=== PATIENT | male | born 1935 | race Caucasian/White ===

== ENCOUNTER → 2016-07-06 | Outpatient (CLI) | payer MEDICARE ==
[~2016-07-06] MED LIST: AMLO10TA82 PO; ATOR10TA66 PO; CPR500T PO; CRAN1CAP3 PO; DCS100C PO; DPAS20025 PO; FINA5TAB6 PO; FURO80TA83 PO; HYDR-3604 PO; HYDRALAZINE; LOSA100T16 PO; MULT-301 PO; NEBI5TAB8 PO; SENN1TAB76 PO; TMSL.4C PO
[2016-07-06 10:40] LABS: MEAN PLATELET VOLUME 10.6 FL (7.4-10.4); RED BLOOD COUNT 4.71 10^6/uL (4.35-5.85); RED CELL DISTRIBUTION WIDTH 14.2 % (10.0-14.5); WHITE BLOOD COUNT 8.6 10^3/uL (4.3-11.0)
[2016-07-06 11:00] LABS: ALBUMIN 3.6 G/DL (3.2-4.5); ANION GAP 5 MMOL/L (5-14); BLOOD UREA NITROGEN 23 MG/DL (7-18); BUN/CREATININE RATIO 22; CALCIUM 9.5 MG/DL (8.5-10.1); CARBON DIOXIDE 29 MMOL/L (21-32); CHLORIDE 108 MMOL/L (98-107); CHOLESTEROL 122 MG/DL (< 200); CREATININE SERUM 1.06 MG/DL (0.60-1.30); DIRECT LDL 61 MG/DL (1-129); GFR ESTIMATED > 60; GLUCOSE 94 MG/DL (70-105); POTASSIUM 3.5 MMOL/L (3.6-5.0); SODIUM 142 MMOL/L (135-145); TRIGLYCERIDES 61 MG/DL (<150); VLDL CHOLESTEROL 12 MG/DL (5-40)
[2016-07-06 13:36] LABS: PROTEIN/CREATININE RATIO 0.59
[2016-07-07 08:25] LABS: CALCIUM PARA THYROID HORMONE 9.3 mg/dL (8.5-10.5)
== END ==
LOC: LAB 10:14
PROVIDERS: ATTEND Internal Medicine Nephrology
DX: N18.4 Chronic kidney disease, stage 4 (severe) (principal); E78.5 Hyperlipidemia, unspecified; N13.9 Obstructive and reflux uropathy, unspecified; I25.10 Atherosclerotic heart disease of native coronary artery without angina pectoris; I50.9 Heart failure, unspecified
CPT/HCPCS: 36415; 80061; 80069; 82306; 82570; 83970; 84156; 85027

== ENCOUNTER → 2017-02-08 | Outpatient (CLI) | payer MEDICARE ==
[2017-02-08 12:20] LABS: MEAN PLATELET VOLUME 11.3 FL (7.4-10.4); RED BLOOD COUNT 4.87 10^6/uL (4.35-5.85); RED CELL DISTRIBUTION WIDTH 13.9 % (10.0-14.5); WHITE BLOOD COUNT 8.8 10^3/uL (4.3-11.0)
[2017-02-08 12:34] LABS: ALBUMIN 3.8 GM/DL (3.2-4.5); ANION GAP 7 MMOL/L (5-14); BLOOD UREA NITROGEN 23 MG/DL (7-18); BUN/CREATININE RATIO 25; CALCIUM 9.6 MG/DL (8.5-10.1); CARBON DIOXIDE 28 MMOL/L (21-32); CHLORIDE 106 MMOL/L (98-107); CHOLESTEROL 129 MG/DL (< 200); CREATININE SERUM 0.92 MG/DL (0.60-1.30); DIRECT LDL 66 MG/DL (1-129); GFR ESTIMATED > 60; GLUCOSE 94 MG/DL (70-105); PHOSPHORUS 2.7 MG/DL (2.3-4.7); POTASSIUM 3.3 MMOL/L (3.6-5.0); SODIUM 141 MMOL/L (135-145); TRIGLYCERIDES 68 MG/DL (<150); VLDL CHOLESTEROL 14 MG/DL (5-40)
[2017-02-08 12:36] LABS: PROTEIN/CREATININE RATIO 0.59
[2017-02-09 07:00] LABS: CALCIUM PARA THYROID HORMONE 9.6 mg/dL (8.5-10.5)
== END ==
LOC: LAB 11:41
PROVIDERS: ATTEND Nurse Practitioner
DX: E78.5 Hyperlipidemia, unspecified (principal); N18.4 Chronic kidney disease, stage 4 (severe); N13.9 Obstructive and reflux uropathy, unspecified; I25.10 Atherosclerotic heart disease of native coronary artery without angina pectoris; I50.9 Heart failure, unspecified; N25.0 Renal osteodystrophy
CPT/HCPCS: 36415; 80061; 80069; 82306; 82570; 83970; 84156; 85027

== ENCOUNTER 2017-05-14 16:53 | Emergency (ER) | payer MEDICARE ==
[~2017-05-14] VITALS: Ht 185.4 cm; Wt 96.2 kg
--- OUTSIDE RECORDS SUMMARY | 2017-05-14 16:59 | XMS REPORT | Clinical Summary ---
Author Author [facility] Organization [facility] Address Unknown Phone Unavailable Care Team Providers Care Vocational Nurse Lvn Name Role Phone Domo Sims MD Unavailable Doctor, Miscellaneous Unavailable Unavailable Isabel Barnard MD Unavailable Yoselin Allan MD PCP Omar Sow MD Unavailable Elvira Rodriguez MD Unavailable Unavailable Sarah Marinelli MD Unavailable Key Yao MD Unavailable Stephanie Condon RN Unavailable Unavailable Source Comments Some departments are not documenting in the electronic medical record. If you do not see the information that you expected, contact Release of Information in the Health Information Management department at [phone] for further assistance in locating additional records.[facility] Allergies No Known Allergies Current Medications Prescription Sig. Disp. Refills Start End Date Status Date hydrALAzine (APRESOLINE) Take 2 Tabs by mouth 90 Tab 3 09/30/19 Active 10 mg tablet three times daily. 12 clopiDOGrel (PLAVIX) 75 Take 75 mg by mouth Active mg tablet daily. senna (SENOKOT) 8.6 mg Take 1 Tab by mouth Active tablet daily. amLODIPine (NORVASC) 10 Take 10 mg by mouth Active mg tablet daily. cyanocobalamin (vitamin Place 5,000 mcg under Active B-12) 5,000 mcg Subl tongue daily. losartan(+) (COZAAR) 100 Take 100 mg by mouth Active mg tablet daily. simvastatin (ZOCOR) 20 mg Take 1 Tab by mouth at 90 Tab 3 10/02/20 Active tablet bedtime daily. 13 finasteride (PROSCAR) 5 TAKE ONE TABLET BY MOUTH 90 Tab 0 03/19/19 Active mg tablet DAILY 17 tamsulosin (FLOMAX) 0.4 Take 1 capsule by mouth 90 capsule 3 05/13/19 Active mg capsule daily. Do not crush, chew 18 or open capsules. Take 30 minutes following the same meal each day. tamsulosin (FLOMAX) 0.4 TAKE ONE CAPSULE BY MOUTH 90 Cap 3 07/01/19 05/12/19 Discontin mg capsule DAILY 17 18 ued tamsulosin (FLOMAX) 0.4 TAKE ONE CAPSULE BY MOUTH 90 capsule 2 05/13/19 Discontin mg capsule DAILY 18 18 ued Active Problems Problem Noted Date Hematuria 03/31/2014 Last Assessment & Plan: Cystoscopy March 2014 negative, review of CT urogram pending, but appears negative per our review. No further workup at this time. Stroke (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) 10/03/2012 HTN (hypertension) 10/03/2012 S/P administration of tPA (rtPA) in a different facility within the last 24 10/03/2012 hours prior to admission to current facility Mechanically assisted ventilation 10/03/2012 Benign prostatic hypertrophy with urinary retention 12/29/2011 Overview: Pt with history of acute renal failure related to urinary retention He also has elevated PSA and prostate biopsy is negative. 80g prostate on TRUS Pt had indwelling ray catheter and underwent discussion of treatment options. His renal failure is resolving. He went to [facility] and underwent photovaporization of prostate gland. Postoperatively, the patient had a suprapubic tube and urethral catheter placed. Urethral catheter was removed. Pt not able to void after bladder filled via SPT and SPT clamped. Pt is not able to void much based on his record keeping and continues to have high PVR as tested per his SPT. SPT attempted to be changed and I was unable to replace it despite use of cystoscope. Patient had UDS done and this shows that he has good bladder function Urethral catheter difficult to place and had to be placed under cystoscopic guidance (see cystoscopy note). Started on Flomax and Finasteride 03/2012. 05/21/12 failed voiding trial with replacement of ray catheter 06/21/12 urethral catheter removed and passed voiding trial. 09/25/14: continues on flomax/finasteride, PVR - 289, Cr stable at 1.1 L ast Assessment & Plan: Patient continues double voiding, creatinine is stable and no further issues with UTI. Will refill flomax/finasteride. Continue to follow with nephrology/PCP, no more PSA screening indicated. RTC PRN Elevated PSA 11/24/2011 Overview: Formatting of this note may be different from the original. PSA Screen Date Value Range Status 09/24/2011 40.93* <4.0 NG/ML Final TRUS-guided biopsy (12 cores) on 12/14/11 Final Pathology Diagnosis: A. Prostate, "needle biopsy of prostate right", biopsy:Benign prostate tissue. There is no evidence of malignancy. B. Prostate, "needle biopsy of prostate left", biopsy:Benign prostate tissue.There is no evidence of malignancy. L ast Assessment & Plan: -RTC in 6 months with PSA. On finasteride Bladder wall thickening 11/24/2011 Last Assessment & Plan: -Thickened Bladder wall - Concern for malignancy - Will evaluate with , Urine cytology, will bring to OR for cystoscopy, possible bladder Bx with B Reterograde ureterograms and possible TURP and prostate biopsy on Dec 13. Will try an obtain CT done -PAT testing. - No pending consults -Consent obtained today Hypokalemia 09/28/2011 High anion gap metabolic acidosis 09/28/2011 Hypertensive urgency 09/24/2011 Hydronephrosis, bilateral 09/24/2011 Overview: - History of acute urinary retention -Reports a history of elevated PSA with negative Bx in - Has Ray catheter in 1990 L ast Assessment & Plan: - Will obtain imaging to evaluate ? Abdominal mass - Will change ray today Acute renal failure (HCC) 09/24/2011 Suprapubic mass 09/24/2011 Encounters Date Type Specialty Care Team Description 05/12/2017 Refill Urology Omar Sow MD 05/11/2017 Refill Urology Omar Sow MD from Last 3 Months Immunizations Name Dates Previously Given Next Due Pneumococcal Vaccine 09/28/2011 (23-[facility] Adult) Family History Medical History Relation Name Comments Hypertension Father Stroke Father Alzheimer's Mother Relation Name Status Comments Father Mother Social History Tobacco Use Types Packs/Day Years Used Date Never Smoker Quit: 09/23/1950 Smokeless Tobacco: Former Chew Quit: User 09/24/1963 Alcohol Use Drinks/Week oz/Week Comments Yes 1 Glasses of 4.2 Socially wine 6 Cans of beer Sex Assigned at Date Recorded Not on file Last Filed Vital Signs Vital Sign Reading Time Taken Blood Pressure 144/74 09/25/2014 11:28 AM CDT Pulse 60 09/25/2014 11:28 AM CDT Temperature 36.7 C (98 F) 10/07/2012 7:41 AM CDT Respiratory Rate 16 09/25/2014 11:28 AM CDT Oxygen Saturation 96% 10/07/2012 7:41 AM CDT Inhaled Oxygen - - Concentration Weight 103.3 kg (227 lb 12.8 oz) 09/25/2014 11:28 AM CDT Height 185.4 cm (6' 1") 09/25/2014 11:28 AM CDT Body Mass Index 30.05 09/25/2014 11:28 AM CDT Plan of Treatment Health Maintenance Due Date Last Done Comments PHYSICAL (COMPREHENSIVE) 1942 EXAM PERTUSSIS VACCINE 1944 TETANUS VACCINE 1950 SHINGLES VACCINE 1993 PREVNAR/PNEUMOVAX (#2) 09/27/2012 09/28/2011 INFLUENZA VACCINE 11/22/2017 Results Not on filefrom Last 3 Months
--- OUTSIDE RECORDS SUMMARY | 2017-05-14 16:59 | XMS REPORT | Encounter Summary ---
Author Author [facility] Organization [facility] Address Unknown Phone Unavailable Care Team Providers Care Clock And Watch Hands Mounter Name Role Phone Domo Sims MD Unavailable Doctor, Miscellaneous Unavailable Unavailable Isabel Barnard MD Unavailable Yoselin Allan MD PCP Omar Sow MD Unavailable Elvira Rodriguez MD Unavailable Unavailable Sarah Marinelli MD Unavailable Key Yao MD Unavailable Stephanie Condon RN Unavailable Unavailable Reason for Visit * Reason Comments Medication Refill Encounter Details Date Type Department Care Team Description 05/12/2017 Refill [facility] Omar Sow MD Physicians - Urology [address] [facility] [address] FLO[address] [place] [address] [facility] [place] [address] OFFICE BLDG [phone] [place] [address] Social History Tobacco Use Types Packs/Day Years Used Date Never Smoker Quit: 09/23/1950 Smokeless Tobacco: Former Chew Quit: User 09/24/1963 Alcohol Use Drinks/Week oz/Week Comments Yes 1 Glasses of 4.2 Socially wine 6 Cans of beer Sex Assigned at Date Recorded Not on file as of this encounter Plan of Treatment Not on fileas of this encounter Visit Diagnoses Not on filein this encounter
--- OUTSIDE RECORDS SUMMARY | 2017-05-14 17:00 | XMS REPORT | Encounter Summary ---
Author Author [facility] Organization [facility] Address Unknown Phone Unavailable Care Team Providers Care Junior Accounting Clerk Name Role Phone Domo Sims MD Unavailable Doctor, Miscellaneous Unavailable Unavailable Isabel Barnard MD Unavailable Yoselin Allan MD PCP Omar Sow MD Unavailable Elvira Rodriguez MD Unavailable Unavailable Sarah Marinelli MD Unavailable Key Yao MD Unavailable Stephanie Condon RN Unavailable Unavailable Reason for Visit * Reason Comments Medication Refill Encounter Details Date Type Department Care Team Description 05/11/2017 Refill [facility] Omar Sow MD Physicians - Urology [address] [facility] [address] FLOOR POD [address] [place] [address] [facility] [place] [address] OFFICE BLDG [phone] [place] [address] Social History Tobacco Use Types [...]
[2017-05-14] MEDS ORDERED: NS IV 1000 ML 1,000 ML IV SCH (19:11)
[2017-05-14 19:15] VITALS: BP 163/78
[2017-05-14 19:43] LABS: BILIRUBIN,URINE NEGATIVE (NEGATIVE); CLARITY,URINE SLIGHTLY CLOUDY; COLOR,URINE YELLOW; GLUCOSE, URINE (UA) NEGATIVE (NEGATIVE); KETONES,URINE NEGATIVE (NEGATIVE); LEUKOCYTE ESTERASE ,URINE 3+ (NEGATIVE); NITRITE,URINE NEGATIVE (NEGATIVE); PH,URINE 6 (5-9); PROTEIN,URINE 2+ (NEGATIVE); UROBILINOGEN,URINE NORMAL (NORMAL)
[2017-05-14 19:44] LABS: BASOPHILS % (AUTO) 0 % (0-10); EOSINOPHILS % (AUTO) 0 % (0-10); HEMATOCRIT 43 % (40-54); HEMOGLOBIN 14.7 G/DL (13.3-17.7); LYMPHOCYTES # (AUTO) 1.3 X 10^3 (1.0-4.0); LYMPHOCYTES % (AUTO) 18 % (12-44); MEAN CORPUSCULAR HEMOGLOBIN 32 PG (25-34); MEAN CORPUSCULAR HGB CONC 34 G/DL (32-36); MEAN CORPUSCULAR VOLUME 94 FL (80-99); MEAN PLATELET VOLUME 10.5 FL (7.4-10.4); MONOCYTES # (AUTO) 1.7 X 10^3 (0.0-1.0); MONOCYTES % (AUTO) 23 % (0-12); NEUTROPHILS # (AUTO) 4.2 X 10^3 (1.8-7.8); NEUTROPHILS % (AUTO) 58 % (42-75); PLATELET COUNT 145 10^3/uL (130-400); RED BLOOD COUNT 4.56 10^6/uL (4.35-5.85); RED CELL DISTRIBUTION WIDTH 14.1 % (10.0-14.5); WHITE BLOOD COUNT 7.2 10^3/uL (4.3-11.0)
[2017-05-14 19:54] LABS: BACTERIA,URINE FEW /HPF; WBC,URINE 25-50 /HPF
[2017-05-14 20:02] LABS: ALANINE AMINOTRANSFERASE 25 U/L (0-55); ALBUMIN 4.1 GM/DL (3.2-4.5); ALKALINE PHOSPHATASE 93 U/L (40-136); BILIRUBIN,TOTAL 1.1 MG/DL (0.1-1.0); BUN/CREATININE RATIO 16; CALCIUM 9.7 MG/DL (8.5-10.1); CARBON DIOXIDE 25 MMOL/L (21-32); CHLORIDE 105 MMOL/L (98-107); CREATININE SERUM 1.12 MG/DL (0.60-1.30); GFR ESTIMATED > 60; GLUCOSE 121 MG/DL (70-105); SODIUM 139 MMOL/L (135-145); TOTAL PROTEIN 7.3 GM/DL (6.4-8.2)
--- NOTE | 2017-05-14 20:09 | Diagnostic Imaging Report ---
INDICATION: Cough. Comparison is made with prior examination from 10/03/12. PA and lateral views of the chest were obtained. FINDINGS: The heart size is normal. There are patchy bibasilar infiltrates, right greater than left. There is some mild venous congestion. There is no pleural effusion or pneumothorax. Mediastinum is unremarkable. IMPRESSION: Patchy bibasilar infiltrates, right greater than left with some mild central pulmonary venous congestion. Dictated by: Dictated on workstation # [id number]
[2017-05-14 20:10] LABS: BAND NEUTROPHILS 6 %; NEUTROPHILS % (MANUAL) 57 %
[2017-05-14 20:11] LABS: BASOPHILS % (MANUAL) 0 %; EOSINOPHILS % (MANUAL) 0 %; LYMPHOCYTES % (MANUAL) 18 %; MONOCYTES % (MANUAL) 19 %; RBC MORPH NORMAL
[2017-05-14] MEDS ORDERED: AZITHROMYCIN 250 MG TAB (ZITHROMAX) PO ONE (20:30)
[2017-05-14] MEDS ORDERED: cefTRIAXone INJECTION 1,000 MG in NS (IVPB) 100 ML IV ONE (20:30)
--- NOTE | 2017-05-14 20:34 | ED General ---
General Chief Complaint: General Problems/Pain Stated Complaint: LOSS OF APPETITE Nursing Triage Note: Pt reports urinary output has been decreased from normal. Pt has hx stage 4 kidney disease. Pt also reports decreassed appetite and nausea. Pt and state pt has had similar symptoms when he was in kidney failure in past. Nursing Sepsis Screen: No Definite Risk Source of Information: Patient, Family, Old Records Exam Limitations: No Limitations History of Present Illness Date Seen by Provider: May 14, 2017 Time Seen by Provider: 19:11 Initial Comments This 81-year-old gentleman presents to the emergency room accompanied by his with complaints of cough, nausea, and decreased appetite. He has a history of acute renal failure as well as urinary retention from prostate problems. He has chronic edema as well and takes Lasix. Patient's daughter also states he has been a little confused. He has been afebrile. Allergies and Home Medications Allergies Coded Allergies: No Known Drug Allergies (Unverified , 09/24/11) Home Medications Amlodipine Besylate 10 Mg Tablet, 10 MG PO DAILY, (Reported) Atorvastatin Calcium 10 Mg Tablet, 10 MG PO DAILY, (Reported) Cefdinir 300 Mg Capsule, 300 MG PO BID Prescribed by: YOLANDA PINEDA on 05/14/172055 Cranberry Conc/Ascorbic Acid 1 Each Capsule, 1 EACH PO DAILY, (Reported) Doxycycline Hyclate 100 Mg Tablet, 100 MG PO BID Prescribed by: YOLANDA PINEDA on 05/14/172055 Finasteride 5 Mg Tablet, 5 MG PO DAILY, (Reported) Furosemide 80 Mg Tablet, 80 MG PO EVERY OTHER DAY, (Reported) Hydralazine Hcl 10 Mg Tablet, 20 MG PO TID, (Reported) TAKE 2 (10MG) TABS Multivitamin 1 Each Tablet, 1 EACH PO DAILY, (Reported) Ondansetron 4 Mg Tab.rapdis, 4 MG SL Q4H PRN for NAUSEA/VOMITING-1ST LINE Prescribed by: YOLANDA PINEDA on 05/14/172055 Senna 1 Ea Tablet, 1 EA PO BID PRN, (Reported) Tamsulosin Hcl 0.4 Mg Cap, 0.4 MG PO DAILY, (Reported) Patient Home Medication List Home Medication List Reviewed: Yes Constitutional: no symptoms reported EENTM: no symptoms reported Respiratory: see HPI Cardiovascular: no symptoms reported Gastrointestinal: see HPI Genitourinary: no symptoms reported Musculoskeletal: no symptoms reported Skin: no symptoms reported Psychiatric/Neurological: No Symptoms Reported Hematologic/Lymphatic: No Symptoms Reported Immunological/Allergic: no symptoms reported Past Vilcyiq-Crczdn-Iumxnp Hx Patient Social History Alcohol Use: Denies Use Recreational Drug Use: No Smoking Status: Never a Smoker 2nd Hand Smoke Exposure: No Recent Foreign Travel: No Contact w/Someone Who Travel: No Recent Infectious Disease Expo: No Recent Hopitalizations: No Immunizations Up To Date Date of Pneumonia Vaccine: Sep 24, 2011 Seasonal Allergies Seasonal Allergies: Yes Surgeries History of Surgeries: Yes (LASER SURG ON PROSTATE) Surgeries: Vasectomy Respiratory History of Respiratory Disorde: No Respiratory Disorders: Pneumonia Cardiovascular History of Cardiac Disorders: Yes (Congestive heart failure) Cardiac Disorders: Chronic Edema/Swelling, High Cholesterol, Hypertension Neurological History of Neurological Disord: Yes Neurological Disorders: Stroke Reproductive System Hx Reproductive Disorders: No Genitourinary History of Genitourinary Disor: Yes (ureteral reflux) Genitourinary Disorders: Benign Prostatic Hyperpl, Prostate Problems (urinary obstruction), Renal Failure Gastrointestinal History of Gastrointestinal Di: No Musculoskeletal History of Musculoskeletal Dis: Yes Musculoskeletal Disorders: Arthritis Endocrine History of Endocrine Disorders: No HEENT HEENT Disorders: Cataract Loss of Vision: Left Hearing Impairment: Bilateral Hearing Aide Cancer History of Cancer: No Psychosocial History of Psychiatric Problem: No Integumentary History of Skin or Integumenta: No (skin lesion) Blood Transfusions History of Blood Disorders: No Family Medical History Significant Family History: Heart Disease Physical Exam Vital Signs Vital Signs - First Documented 05/14/17 18:12 Temp 99.7 Pulse 72 Resp 18 B/P (MAP) 148/72 (97) Pulse Ox 92 O2 Delivery Room Air Capillary Refill : Less Than 3 Seconds General Appearance: No Apparent Distress, WD/WN HEENT: PERRL/EOMI, Normal ENT Inspection, Pharynx Normal Neck: Normal Inspection Respiratory: Lungs Clear, Normal Breath Sounds, No Accessory Muscle Use, No Respiratory Distress Cardiovascular: Regular Rate, Rhythm, No Murmur, Other (Diffuse edema of the extremities equal bilaterally) Gastrointestinal: Normal Bowel Sounds, Non Tender, Soft Extremity: Non Tender, Swelling Neurologic/Psychiatric: Alert, Oriented x3, No Motor/Sensory Deficits, Normal Mood/Affect, machine stitcher II-XII Norm as Tested Skin: Other (mild erythema of the extremities) Progress/Results/Core Measures Suspected Sepsis Recent Fever Within 48 Hours: Yes Infection Criteria Present: Suspected New Infection New/Unexplained Altered Menta: No Sepsis Screen: No Definite Risk Sepsis Diagnosis: SIRS Temperature:99.7 Pulse: 66 Respiratory Rate: 18 Laboratory Tests 05/14/17 19:20: White Blood Count 7.2 Blood Pressure 163 /78 Mean: 106 Laboratory Tests 05/14/17 19:20: Creatinine 1.12, Platelet Count 145, Total Bilirubin 1.1H Results/Orders Lab Results Laboratory Tests Test 05/14/17 19:12 05/14/17 19:20 05/14/17 19:45 Range/Units Urine Color YELLOW Urine Clarity SLIGHTLY CLOUDY Urine pH 6 5-9 Urine Specific [place] 1.015 L 1.016-1.022 Urine Protein 2+ H NEGATIVE Urine Glucose (UA) NEGATIVE NEGATIVE Urine Ketones NEGATIVE NEGATIVE Urine Nitrite NEGATIVE NEGATIVE Urine Bilirubin NEGATIVE NEGATIVE Urine Urobilinogen NORMAL NORMAL MG/DL Urine Leukocyte Esterase 3+ H NEGATIVE Urine RBC (Auto) 2+ H NEGATIVE Urine RBC 10-25 H /HPF Urine WBC 25-50 H /HPF Urine Crystals NONE /LPF Urine Bacteria FEW H /HPF Urine Casts NONE /LPF Urine Mucus NEGATIVE /LPF Urine Culture Indicated YES White Blood Count 7.2 4.3-11.0 10^3/uL Red Blood Count 4.56 4.35-5.85 10^6/uL Hemoglobin 14.7 13.3-17.7 G/DL Hematocrit 43 40-54 % Mean Corpuscular Volume 94 80-99 FL Mean Corpuscular Hemoglobin 32 25-34 PG Mean Corpuscular Hemoglobin Concent 34 32-36 G/DL Red Cell Distribution Width 14.1 10.0-14.5 % Platelet Count 145 130-400 10^3/uL Mean Platelet Volume 10.5 H 7.4-10.4 FL Neutrophils (%) (Auto) 58 42-75 % Lymphocytes (%) (Auto) 18 12-44 % Monocytes (%) (Auto) 23 H 0-12 % Eosinophils (%) (Auto) 0 0-10 % Basophils (%) (Auto) 0 0-10 % Neutrophils # (Auto) 4.2 1.8-7.8 X 10^3 Lymphocytes # (Auto) 1.3 1.0-4.0 X 10^3 Monocytes # (Auto) 1.7 H 0.0-1.0 X 10^3 Eosinophils # (Auto) 0.0 0.0-0.3 10^3/uL Basophils # (Auto) 0.0 0.0-0.1 10^3/uL Neutrophils % (Manual) 57 % Lymphocytes % (Manual) 18 % Monocytes % (Manual) 19 % Eosinophils % (Manual) 0 % Basophils % (Manual) 0 % Band Neutrophils 6 % Blood Morphology Comment NORMAL Sodium Level 139 135-145 MMOL/L Potassium Level 4.0 3.6-5.0 MMOL/L Chloride Level 105 98-107 MMOL/L Carbon Dioxide Level 25 21-32 MMOL/L Anion Gap 9 5-14 MMOL/L Blood Urea Nitrogen 18 7-18 MG/DL Creatinine 1.12 0.60-1.30 MG/DL Estimat Glomerular Filtration Rate > 60 BUN/Creatinine Ratio 16 Glucose Level 121 H 70-105 MG/DL Calcium Level 9.7 8.5-10.1 MG/DL Total Bilirubin 1.1 H 0.1-1.0 MG/DL Aspartate Amino Transf (AST/SGOT) 28 5-34 U/L Alanine Aminotransferase (ALT/SGPT) 25 0-55 U/L Alkaline Phosphatase 93 40-136 U/L Total Protein 7.3 6.4-8.2 GM/DL Albumin 4.1 3.2-4.5 GM/DL B-Type Natriuretic Peptide 13.8 <100.0 PG/ML My Orders Orders - YOLANDA CESPEDES MD Ua Culture If Indicated (05/14/17 19:11) Cbc With Automated Diff (05/14/17 19:11) Comprehensive Metabolic Panel (05/14/17 19:11) Saline Lock/Iv-Start (05/14/17 19:11) Ns Iv 1000 Ml (Sodium Chloride 0.9%) (05/14/17 19:11) Chest Pa/Lat (2 View) (05/14/17 19:40) BNP (05/14/17 19:40) Manual Differential (05/14/17 19:20) Urine Culture (05/14/17 19:12) Bladder Scan (05/14/17 20:11) Ceftriaxone Injection (Rocephin Injectio (05/14/17 20:30) Azithromycin Tablet (Zithromax Tablet) (05/14/17 20:30) Doxycycline Hyclate Tablet (Vibramycin T (05/14/17 20:45) Medications Given in ED Current Medications Medications Dose Ordered Sig/Svetlana Route Start Time Stop Time Status Last Admin Dose Admin Ceftriaxone Sodium 1000 mg/ Sodium Chloride 100 ml @ 200 mls/hr ONCE ONCE IV 05/14/17 20:30 05/14/17 20:59 DC 05/14/17 20:51 200 MLS/HR Doxycycline Hyclate 100 mg ONCE ONCE PO 05/14/17 20:45 05/14/17 20:46 DC 05/14/17 20:51 100 MG Vital Signs/I&O Vital Sign - Last 12Hours 05/14/17 05/14/17 19:15 21:11 Temp 99.0 Pulse 66 68 Resp 18 18 B/P (MAP) 163/78 (106) 162/83 (106) Pulse Ox 93 92 O2 Delivery Room Air Room Air Intake and Output 05/15/17 00:00 Intake Total 200 ml Balance 200 ml Capillary Refill : Less Than 3 Seconds Blood Pressure Mean: 106 Progress Note : Time: 20:35 Progress Note Patient was found to have urinary tract infection by urinalysis. Review of prior urine cultures shows a recurrent infection with coag-negative staph that is highly resistant. Doxycycline was selected for treatment based on these culture results. Bilateral lower lung infiltrates were seen on chest x-ray. Rocephin was also given for double coverage of pneumonia and urinary tract infection as this patient is at high risk with his urinary retention and age. Patient will be dismissed on Omnicef and doxycycline. I did not select Macrobid as he historically has problems with renal failure, although his kidney function is normal today. A liter of IV fluids was ordered initially but stopped after about 100 mL when his significant edema of the extremities was noted. Patient did not meet criteria for sepsis. He was afebrile and had a normal white count. Heart rate was also normal. Postvoid residual volume on bladder scan was 471 ML. Patient was instructed to straight catheter upon returning home and 2 or 3 times daily until otherwise instructed. Diagnostic Imaging Diagonstic Imaging: Xray Plain Films/CT/US/NM/MRI: chest Comments Chest x-ray viewed by me and report reviewed. See report below: NAME: RACHANANELDA Lawson [facility] REC#: [id number] PT STATUS: REG ER : 1935 PHYSICIAN: YOLANDA CESPEDES MD ADMIT DATE: 05/14/17/ER Draft Date of Exam:05/14/17 CHEST PA/LAT (2 VIEW) INDICATION: Cough. Comparison is made with prior examination from 10/03/12. PA and lateral views of the chest were obtained. FINDINGS: The heart size is normal. There are patchy bibasilar infiltrates, right greater than left. There is some mild venous congestion. There is no pleural effusion or pneumothorax. Mediastinum is unremarkable. IMPRESSION: Patchy bibasilar infiltrates, right greater than left with some mild central pulmonary venous congestion. Dictated on workstation # [id number] Dict: 05/14/171999 Trans: 05/14/172007 [id number] Interpreted by: TETO ROME MD Departure Impression Impression: Primary Impression: Urinary tract infection Qualified Codes: N39.0 - Urinary tract infection, site not specified Additional Impressions: Community acquired pneumonia Qualified Codes: J18.9 - Pneumonia, unspecified organism Decreased appetite Nausea Urinary retention Disposition: HOME, SELF-CARE Condition: Improved Departure-Patient Inst. Decision time for Depature: 20:29 Referrals: LORAINE MCCONNELL MD (PCP/Family) Primary Care Physician Patient Instructions: Community-Acquired Pneumonia in Adults, Urinary Tract Infection, Adult (DC) Add. Discharge Instructions: Drink plenty of clear liquids. Complete your antibiotics as prescribed. Use Zofran (ondansetron) as prescribed for nausea. Follow-up with your doctor as soon as possible. Return to emergency room if symptoms worsen. Perform straight catheterization at home at least twice daily or more often if needed to ensure you are completely emptying your bladder. Do this until you follow- up with your doctor for further discussion on whether this should be done on a long-term basis. All discharge instructions reviewed with patient and/or family. Voiced understanding. Scripts Ondansetron (Zofran Odt) 4 Mg Tab.rapdis 4 MG SL Q4H Y for NAUSEA/VOMITING-1ST LINE, #10 TAB Prov: YOLANDA CESPEDES MD 05/14/17 Cefdinir (Cefdinir) 300 Mg Capsule 300 MG PO BID, #14 CAP Prov: YOLANDA CESPEDES MD 05/14/17 Doxycycline Hyclate (Doxycycline Hyclate) 100 Mg Tablet 100 MG PO BID, #20 TAB Prov: YOLANDA CESPEDES MD 05/14/17 Copy Copies To 1: LORAINE MCCONNELL MD, JOSHUA T MD May 14, 2017 20:34
[2017-05-14] MEDS ORDERED: DOXYCYCLINE 100 MG (VIBRAMYCIN) TABLET PO ONE (20:45)
[2017-05-14] MEDS ORDERED: ONDA4TAB8 SL (20:56)
[2017-05-14] MEDS ORDERED: DOXY100T2 PO (20:56)
[2017-05-14] MEDS ORDERED: CEFD300C3 PO (20:56)
[2017-05-14 21:11] VITALS: BP 162/83
== END 2017-05-14 21:07 | disposition home or self-care (01) ==
LOC: EDUNIT# 16:53 → ER 16:56
DX: N39.0 Urinary tract infection, site not specified (principal); J18.9 Pneumonia, unspecified organism; R63.0 Anorexia; R11.0 Nausea; N40.1 Benign prostatic hyperplasia with lower urinary tract symptoms; R33.8 Other retention of urine; E78.00 Pure hypercholesterolemia, unspecified; I11.0 Hypertensive heart disease with heart failure; I50.9 Heart failure, unspecified; R60.9 Edema, unspecified; Z98.52 Vasectomy status; Z86.73 Personal history of transient ischemic attack (TIA), and cerebral infarction without residual deficits
CPT/HCPCS: 36415; 71046; 80053; 81000; 83880; 85007; 85027; 87077; 87088; 96361; 96374

== ENCOUNTER 2017-06-10 13:16 | Outpatient (RCR) | payer MEDICARE ==
[~2017-06-10 13:16] MED LIST changes: +CEFD300C3 PO; +DOXY100T2 PO; +ONDA4TAB8 SL
== END 2017-06-17 13:11 | disposition home or self-care (01) ==
PROVIDERS: ATTEND Family Medicine
DX: R29.898 Other symptoms and signs involving the musculoskeletal system (principal)

== ENCOUNTER → 2017-09-13 | Outpatient (CLI) | payer MEDICARE ==
[2017-09-13 11:39] LABS: BASOPHILS # (AUTO) 0.1 10^3/uL (0.0-0.1); BASOPHILS % (AUTO) 1 % (0-10); EOSINOPHILS # (AUTO) 0.4 10^3/uL (0.0-0.3); EOSINOPHILS % (AUTO) 5 % (0-10); HEMATOCRIT 43 % (40-54); HEMOGLOBIN 14.5 G/DL (13.3-17.7); LYMPHOCYTES # (AUTO) 2.9 X 10^3 (1.0-4.0); LYMPHOCYTES % (AUTO) 33 % (12-44); MEAN CORPUSCULAR HEMOGLOBIN 32 PG (25-34); MEAN CORPUSCULAR HGB CONC 34 G/DL (32-36); MEAN CORPUSCULAR VOLUME 94 FL (80-99); MEAN PLATELET VOLUME 10.4 FL (7.4-10.4); MONOCYTES # (AUTO) 1.1 X 10^3 (0.0-1.0); MONOCYTES % (AUTO) 12 % (0-12); NEUTROPHILS # (AUTO) 4.2 X 10^3 (1.8-7.8); NEUTROPHILS % (AUTO) 49 % (42-75); PLATELET COUNT 200 10^3/uL (130-400); RED BLOOD COUNT 4.58 10^6/uL (4.35-5.85); RED CELL DISTRIBUTION WIDTH 14.1 % (10.0-14.5); WHITE BLOOD COUNT 8.6 10^3/uL (4.3-11.0)
[2017-09-13 11:57] LABS: ALBUMIN 3.7 GM/DL (3.2-4.5); BUN/CREATININE RATIO 20; CARBON DIOXIDE 22 MMOL/L (21-32); CHLORIDE 111 MMOL/L (98-107); CHOLESTEROL 127 MG/DL (< 200); GFR ESTIMATED > 60; GLUCOSE 100 MG/DL (70-105); HDL CHOLESTEROL 44 MG/DL (40-60); PHOSPHORUS 2.8 MG/DL (2.3-4.7); POTASSIUM 3.7 MMOL/L (3.6-5.0); SODIUM 141 MMOL/L (135-145); TRIGLYCERIDES 55 MG/DL (<150); VLDL CHOLESTEROL 11 MG/DL (5-40)
== END ==
LOC: LAB 11:08
PROVIDERS: ATTEND Internal Medicine Nephrology
DX: N18.4 Chronic kidney disease, stage 4 (severe) (principal); N13.9 Obstructive and reflux uropathy, unspecified; I25.10 Atherosclerotic heart disease of native coronary artery without angina pectoris; I50.9 Heart failure, unspecified; E78.5 Hyperlipidemia, unspecified; N25.0 Renal osteodystrophy; N17.9 Acute kidney failure, unspecified
CPT/HCPCS: 36415; 80061; 80069; 82306; 82570; 83970; 84156; 85025

== ENCOUNTER → 2018-05-09 | Outpatient (CLI) | payer MEDICARE ==
[2018-05-09 11:51] LABS: HEMOGLOBIN 15.2 G/DL (13.3-17.7); MEAN PLATELET VOLUME 10.6 FL (7.4-10.4); RED CELL DISTRIBUTION WIDTH 14.3 % (10.0-14.5); WHITE BLOOD COUNT 7.8 10^3/uL (4.3-11.0)
[2018-05-09 13:33] LABS: BUN/CREATININE RATIO 23; CALCIUM 10.1 MG/DL (8.5-10.1); CARBON DIOXIDE 25 MMOL/L (21-32); CHLORIDE 107 MMOL/L (98-107); CREATININE SERUM 0.99 MG/DL (0.60-1.30); GFR ESTIMATED > 60; GLUCOSE 96 MG/DL (70-105); POTASSIUM 3.6 MMOL/L (3.6-5.0); SODIUM 140 MMOL/L (135-145)
[2018-05-09 13:44] LABS: PHOSPHORUS 2.9 MG/DL (2.3-4.7)
== END ==
LOC: LAB 11:01
PROVIDERS: ATTEND Internal Medicine Nephrology
DX: N18.4 Chronic kidney disease, stage 4 (severe) (principal); N13.9 Obstructive and reflux uropathy, unspecified; I25.10 Atherosclerotic heart disease of native coronary artery without angina pectoris; I50.9 Heart failure, unspecified; E78.5 Hyperlipidemia, unspecified; N25.0 Renal osteodystrophy; N17.9 Acute kidney failure, unspecified
CPT/HCPCS: 80069; 82306; 82570; 83970; 84100; 84156

== ENCOUNTER → 2018-05-09 | Outpatient (CLI) | payer MEDICARE ==
[2018-05-09 11:32] LABS: BASOPHILS # (AUTO) 0.1 10^3/uL (0.0-0.1); BASOPHILS % (AUTO) 1 % (0-10); EOSINOPHILS # (AUTO) 0.2 10^3/uL (0.0-0.3); EOSINOPHILS % (AUTO) 3 % (0-10); HEMATOCRIT 44 % (40-54); HEMOGLOBIN 15.2 G/DL (13.3-17.7); LYMPHOCYTES # (AUTO) 2.9 X 10^3 (1.0-4.0); LYMPHOCYTES % (AUTO) 37 % (12-44); MEAN CORPUSCULAR HEMOGLOBIN 32 PG (25-34); MEAN CORPUSCULAR HGB CONC 35 G/DL (32-36); MEAN CORPUSCULAR VOLUME 93 FL (80-99); MEAN PLATELET VOLUME 10.6 FL (7.4-10.4); MONOCYTES # (AUTO) 0.8 X 10^3 (0.0-1.0); MONOCYTES % (AUTO) 11 % (0-12); NEUTROPHILS # (AUTO) 3.8 X 10^3 (1.8-7.8); NEUTROPHILS % (AUTO) 49 % (42-75); PLATELET COUNT 191 10^3/uL (130-400); RED CELL DISTRIBUTION WIDTH 14.3 % (10.0-14.5); WHITE BLOOD COUNT 7.8 10^3/uL (4.3-11.0)
[2018-05-09 12:04] LABS: ALANINE AMINOTRANSFERASE 15 U/L (0-55); ALKALINE PHOSPHATASE 80 U/L (40-136); BILIRUBIN,TOTAL 1.8 MG/DL (0.1-1.0); BUN/CREATININE RATIO 23; CALCIUM 10.1 MG/DL (8.5-10.1); CARBON DIOXIDE 25 MMOL/L (21-32); CHLORIDE 107 MMOL/L (98-107); CHOLESTEROL 130 MG/DL (< 200); CREATININE SERUM 0.99 MG/DL (0.60-1.30); GFR ESTIMATED > 60; GLUCOSE 96 MG/DL (70-105); HDL CHOLESTEROL 46 MG/DL (40-60); POTASSIUM 3.6 MMOL/L (3.6-5.0); SODIUM 140 MMOL/L (135-145); TOTAL PROTEIN 7.3 GM/DL (6.4-8.2); TRIGLYCERIDES 60 MG/DL (<150); VLDL CHOLESTEROL 12 MG/DL (5-40)
--- NOTE | 2018-05-10 13:33 | Physician Query-Final Dx ---
ELANA WHITAKER 05/10/18 1333: Clinic Account Progress/Dx Physician Query: Please give a diagnosis for the PSA test thank you Date of Service May 09, 2018 at 10:59 LORAINE MCCONNELL MD 05/17/18 2119: Clinic Account Progress/Dx DIAGNOSIS: Diagnosis ENLARGED PROSTATE ELANA WHITAKER May 10, 2018 13:33 LORAINE MCCONNELL MD May 17, 2018 21:19
== END ==
LOC: LAB 10:59
PROVIDERS: ATTEND Family Medicine
DX: I10 Essential (primary) hypertension (principal); N40.0 Benign prostatic hyperplasia without lower urinary tract symptoms; Z79.899 Other long term (current) drug therapy
CPT/HCPCS: 36415; 80053; 80061; 84153; 84443; 85025

== ENCOUNTER → 2018-10-25 | Outpatient (CLI) | payer MEDICARE ==
--- NOTE | 2018-10-25 10:44 | Diagnostic Imaging Report ---
PROCEDURE: US carotid duplex, bilateral. TECHNIQUE: Multiple real-time grayscale images were obtained over the carotid arteries in various projections, bilaterally. Additional spectral analysis and color Doppler duplex images were also obtained. INDICATION: Stroke. Parameters based on the consensus panel Wolff-Scale and Doppler ultrasound criteria published December 2002, Radiology, Volume 229. DOPPLER (peak systolic velocity M/S Right Left CCA .93 .96 ICA Proximal .91 .83 ICA Mid .91 .86 ICA Distal .58 .57 RATIO 0.97 0.87 ECA .85 1.03 VERT .33 .44 FINDINGS: There are no focally elevated velocities in either internal carotid artery. The ICA/CCA ratios are within normal limits, bilaterally. There is antegrade flow in the vertebral arteries, bilaterally. Grayscale images demonstrate minimal carotid plaque, bilaterally. IMPRESSION: Minimal bilateral carotid plaque however spectral analysis shows no evidence of a hemodynamically significant stenosis in either internal carotid artery. Dictated by: Dictated on workstation # [id number]
== END ==
LOC: RAD 09:33
PROVIDERS: ATTEND Family Medicine
DX: I63.9 Cerebral infarction, unspecified (principal)
CPT/HCPCS: 93880

== ENCOUNTER → 2018-12-06 | Outpatient (CLI) | payer MEDICARE ==
[2018-12-06 13:15] LABS: MEAN PLATELET VOLUME 10.6 FL (7.4-10.4); RED CELL DISTRIBUTION WIDTH 14.3 % (10.0-14.5); WHITE BLOOD COUNT 7.8 10^3/uL (4.3-11.0)
[2018-12-06 13:37] LABS: BUN/CREATININE RATIO 21; CALCIUM 9.6 MG/DL (8.5-10.1); CARBON DIOXIDE 26 MMOL/L (21-32); CHLORIDE 108 MMOL/L (98-107); CREATININE SERUM 0.97 MG/DL (0.60-1.30); GFR ESTIMATED > 60; GLUCOSE 90 MG/DL (70-105); PHOSPHORUS 2.9 MG/DL (2.3-4.7); POTASSIUM 3.6 MMOL/L (3.6-5.0); SODIUM 141 MMOL/L (135-145)
== END ==
LOC: LAB 12:33
PROVIDERS: ATTEND Internal Medicine Nephrology
DX: I13.0 Hypertensive heart and chronic kidney disease with heart failure and stage 1 through stage 4 chronic kidney disease, or unspecified chronic kidney disease (principal); N18.4 Chronic kidney disease, stage 4 (severe); I50.9 Heart failure, unspecified; N13.9 Obstructive and reflux uropathy, unspecified; I25.10 Atherosclerotic heart disease of native coronary artery without angina pectoris; E78.5 Hyperlipidemia, unspecified; N25.0 Renal osteodystrophy; N17.9 Acute kidney failure, unspecified; R80.9 Proteinuria, unspecified
CPT/HCPCS: 36415; 80069; 82306; 82570; 83970; 84156; 85027

== ENCOUNTER → 2019-07-19 | Outpatient (CLI) | payer MEDICARE ==
[2019-07-19 12:22] LABS: BASOPHILS % (AUTO) 1 % (0-10); EOSINOPHILS # (AUTO) 0.2 10^3/uL (0.0-0.3); EOSINOPHILS % (AUTO) 3 % (0-10); HEMATOCRIT 45 % (40-54); HEMOGLOBIN 15.1 G/DL (13.3-17.7); LYMPHOCYTES # (AUTO) 3.1 X 10^3 (1.0-4.0); LYMPHOCYTES % (AUTO) 42 % (12-44); MEAN CORPUSCULAR HEMOGLOBIN 32 PG (25-34); MEAN CORPUSCULAR HGB CONC 34 G/DL (32-36); MEAN CORPUSCULAR VOLUME 93 FL (80-99); MEAN PLATELET VOLUME 10.9 FL (7.4-10.4); MONOCYTES # (AUTO) 0.8 X 10^3 (0.0-1.0); MONOCYTES % (AUTO) 10 % (0-12); NEUTROPHILS # (AUTO) 3.3 X 10^3 (1.8-7.8); NEUTROPHILS % (AUTO) 45 % (42-75); PLATELET COUNT 175 10^3/uL (130-400); RED CELL DISTRIBUTION WIDTH 14.3 % (10.0-14.5); WHITE BLOOD COUNT 7.4 10^3/uL (4.3-11.0)
[2019-07-19 12:36] LABS: ALBUMIN 3.8 GM/DL (3.2-4.5); BUN/CREATININE RATIO 15; CALCIUM 9.5 MG/DL (8.5-10.1); CARBON DIOXIDE 26 MMOL/L (21-32); CHLORIDE 109 MMOL/L (98-107); CREATININE SERUM 1.02 MG/DL (0.60-1.30); GFR ESTIMATED > 60; GLUCOSE 98 MG/DL (70-105); PHOSPHORUS 2.4 MG/DL (2.3-4.7); POTASSIUM 3.4 MMOL/L (3.6-5.0); SODIUM 141 MMOL/L (135-145)
== END ==
LOC: LAB 11:48
PROVIDERS: ATTEND Internal Medicine Nephrology
DX: I13.10 Hypertensive heart and chronic kidney disease without heart failure, with stage 1 through stage 4 chronic kidney disease, or unspecified chronic kidney disease (principal); N18.4 Chronic kidney disease, stage 4 (severe); N13.9 Obstructive and reflux uropathy, unspecified; I25.10 Atherosclerotic heart disease of native coronary artery without angina pectoris; I50.9 Heart failure, unspecified; E78.5 Hyperlipidemia, unspecified; N25.0 Renal osteodystrophy; N17.9 Acute kidney failure, unspecified; R80.9 Proteinuria, unspecified
CPT/HCPCS: 36415; 80069; 82306; 82570; 83970; 84156; 85025

== ENCOUNTER 2019-09-18 13:06 | Outpatient (RCR) | payer MEDICARE ==
[2019-09-20] MEDS ORDERED: FINA5TAB6 PO (09:57)
[2019-09-20] MEDS ORDERED: HYDR-3922 PO (09:57)
[2019-09-20] MEDS ORDERED: ATOR40TA70 PO (09:57)
[2019-09-20] MEDS ORDERED: AMLO10TA7 PO (09:57)
[2019-09-20] MEDS ORDERED: POTA20TA8 PO (09:57)
[2019-09-20] MEDS ORDERED: TMSL.4C PO (09:57)
[2019-10-08] MEDS ORDERED: MICO90PO TOP (18:45)
[2019-10-08] MEDS ORDERED: HYDR-3812 PO (18:45)
[2019-10-08] MEDS ORDERED: SENN-20 PO (18:45)
[2019-10-08] MEDS ORDERED: LACT1CAP7 PO (18:45)
== END 2019-10-16 15:24 | disposition home or self-care (01) ==
PROVIDERS: ATTEND Nurse Practitioner Family
DX: R53.1 Weakness (principal)

== ENCOUNTER 2019-09-19 05:29 | Inpatient (IN) | payer MEDICARE ==
[2019-09-19] VITALS (10 sets, daily range): BP systolic 93–162; BP diastolic 62–96
[~2019-09-19] VITALS: Ht 184.5 cm; Wt 92.3 kg
--- NOTE | 2019-09-19 05:55 | ED Fall/Injury ---
General Stated Complaint: FALL,LEFT HIP PAIN Source: patient, EMS History of Present Illness Date Seen by Provider: Sep 19, 2019 Time Seen by Provider: 05:30 Initial Comments PT ARRIVES VIA EMS FROM HOME GOT UP TO GO TO THE BATHROOM AND TRIPPED AND FELL ONTO CEDAR CHEST WITH LEFT HIP AND THEN LANDED ON FLOOR ON LEFT HIP C/O LEFT HIP PAIN DID NOT HIT HEAD OR HAVE LOSS OF CONSCIOUSNESS NO NECK OR BACK PAIN NO CHEST OR ABDOMINAL PAIN NO PAIN OR INJURY ANYWHERE BESIDES LEFT HIP NO PARESTHESIAS OR MOTOR DEFICITS NO PRIOR HISTORY OF INJURY OR SURGERY TO LEFT HIP EMS GAVE FENTANYL 50 MCG PRIOR TO ARRIVAL PCP: DR. MCCONNELL Allergies and Home Medications Allergies Coded Allergies: No Known Drug Allergies (Unverified , 09/24/11) Home Medications Amlodipine Besylate 10 Mg Tablet, 10 MG PO DAILY, (Reported) Atorvastatin Calcium 10 Mg Tablet, 10 MG PO DAILY, (Reported) Cefdinir 300 Mg Capsule, 300 MG PO BID Prescribed by: YOLANDA PINEDA on 05/14/172055 Cranberry Conc/Ascorbic Acid 1 Each Capsule, 1 EACH PO DAILY, (Reported) Doxycycline Hyclate 100 Mg Tablet, 100 MG PO BID Prescribed by: YOLANDA PINEDA on 05/14/172055 Finasteride 5 Mg Tablet, 5 MG PO DAILY, (Reported) Furosemide 80 Mg Tablet, 80 MG PO EVERY OTHER DAY, (Reported) Hydralazine Hcl 10 Mg Tablet, 20 MG PO TID, (Reported) TAKE 2 (10MG) TABS Multivitamin 1 Each Tablet, 1 EACH PO DAILY, (Reported) Ondansetron 4 Mg Tab.rapdis, 4 MG SL Q4H PRN for NAUSEA/VOMITING-1ST LINE Prescribed by: YOLANDA PINEDA on 05/14/172055 Senna 1 Ea Tablet, 1 EA PO BID PRN, (Reported) Tamsulosin Hcl 0.4 Mg Cap, 0.4 MG PO DAILY, (Reported) Patient Home Medication List Home Medication List Reviewed: Yes Review of Systems Review of Systems Constitutional: no symptoms reported Eyes: No Symptoms Reported Ears, Nose, Mouth, Throat: no symptoms reported Respiratory: no symptoms reported Cardiovascular: no symptoms reported Gastrointestinal: no symptoms reported Genitourinary: no symptoms reported Musculoskeletal: see HPI Skin: no symptoms reported Psychiatric/Neurological: No Symptoms Reported Past Kjdonsu-Qzjyxv-Dewrfy Hx Past Med/Social Hx: Reviewed and Corrections made Patient Social History 2nd Hand Smoke Exposure: No Recent Hopitalizations: No Immunizations Up To Date Date of Pneumonia Vaccine: Sep 24, 2011 Seasonal Allergies Seasonal Allergies: Yes Past Medical History Surgeries: Yes (LASER SURG ON PROSTATE) Vasectomy Respiratory: Yes Pneumonia Cardiac: Yes (Congestive heart failure) Chronic Edema/Swelling, High Cholesterol, Hypertension Neurological: Yes Stroke Reproductive Disorders: No Genitourinary: Yes (ureteral reflux) Benign Prostatic Hyperpl, Prostate Problems, Renal Failure Gastrointestinal: No Musculoskeletal: Yes Arthritis Endocrine: No HEENT: Yes Cataract Loss of Vision: Left Hearing Impairment: Bilateral Hearing Aide Cancer: No Psychosocial: No Integumentary: No (skin lesion) Blood Disorders: No Family Medical History Heart Disease Physical Exam Vital Signs Vital Signs - First Documented 09/19/19 05:40 Temp 36.9 Pulse 60 Resp 16 B/P (MAP) 152/85 (107) Pulse Ox 95 O2 Delivery Room Air Capillary Refill : Height, Weight, BMI Height: 6'1.00" Weight: 212lbs. 0.0oz. 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 PT HAS 3-4+ EDEMA OF BOTH FEET /LOWER LEGS--UNABLE TO PALPATE PULSES, BUT FEET ARE PINK AND WARM, ) Neurologic/Psychiatric: nurse sane II-XII nml as tested, no motor/sensory deficits, alert, normal mood/affect, oriented x 3 Skin: normal color, warm/dry Progress/Results/Core Measures Results/Orders Lab Results Laboratory Tests Test 09/19/19 05:44 09/19/19 06:08 Range/Units Urine Color YELLOW Urine Clarity CLOUDY H Urine pH 6.5 5-9 Urine Specific [place] 1.010 L 1.016-1.022 Urine Protein 1+ H NEGATIVE Urine Glucose (UA) NEGATIVE NEGATIVE Urine Ketones NEGATIVE NEGATIVE Urine Nitrite NEGATIVE NEGATIVE Urine Bilirubin NEGATIVE NEGATIVE Urine Urobilinogen 0.2 < = 1.0 MG/DL Urine Leukocyte Esterase 3+ H NEGATIVE Urine RBC (Auto) 1+ H NEGATIVE Urine RBC 10-25 H /HPF Urine WBC TNTC H /HPF Urine Squamous Epithelial Cells NONE /HPF Urine Crystals NONE /LPF Urine Bacteria MODERATE H /HPF Urine Casts NONE /LPF Urine Mucus NEGATIVE /LPF Urine Culture Indicated YES White Blood Count 10.6 4.3-11.0 10^3/uL Red Blood Count 4.19 L 4.35-5.85 10^6/uL Hemoglobin 13.3 13.3-17.7 G/DL Hematocrit 39 L 40-54 % Mean Corpuscular Volume 93 80-99 FL Mean Corpuscular Hemoglobin 32 25-34 PG Mean Corpuscular Hemoglobin Concent 34 32-36 G/DL Red Cell Distribution Width 13.2 10.0-14.5 % Platelet Count 266 130-400 10^3/uL Mean Platelet Volume 10.1 7.4-10.4 FL Neutrophils (%) (Auto) 70 42-75 % Lymphocytes (%) (Auto) 20 12-44 % Monocytes (%) (Auto) 9 0-12 % Eosinophils (%) (Auto) 1 0-10 % Basophils (%) (Auto) 0 0-10 % Neutrophils # (Auto) 7.4 1.8-7.8 X 10^3 Lymphocytes # (Auto) 2.2 1.0-4.0 X 10^3 Monocytes # (Auto) 1.0 0.0-1.0 X 10^3 Eosinophils # (Auto) 0.1 0.0-0.3 10^3/uL Basophils # (Auto) 0.0 0.0-0.1 10^3/uL Prothrombin Time 13.8 12.2-14.7 SEC INR Comment 1.0 0.8-1.4 Activated Partial Thromboplast Time 32 24-35 SEC Sodium Level 139 135-145 MMOL/L Potassium Level 4.0 3.6-5.0 MMOL/L Chloride Level 108 H 98-107 MMOL/L Carbon Dioxide Level 21 21-32 MMOL/L Anion Gap 10 5-14 MMOL/L Blood Urea Nitrogen 20 H 7-18 MG/DL Creatinine 1.09 0.60-1.30 MG/DL Estimat Glomerular Filtration Rate > 60 BUN/Creatinine Ratio 18 Glucose Level 128 H 70-105 MG/DL Calcium Level 10.4 H 8.5-10.1 MG/DL Corrected Calcium 10.9 H 8.5-10.1 MG/DL Total Bilirubin 0.9 0.1-1.0 MG/DL Aspartate Amino Transf (AST/SGOT) 24 5-34 U/L Alanine Aminotransferase (ALT/SGPT) 25 0-55 U/L Alkaline Phosphatase 79 40-136 U/L Total Protein 7.3 6.4-8.2 GM/DL Albumin 3.4 3.2-4.5 GM/DL My Orders Orders - MICHAEL MCELROY DO Ed Iv/Invasive Line Start (09/19/19 05:34) Chest 1 View, Ap/Pa Only (09/19/19 05:34) Pelvis With Left Hip 2-3 Views (09/19/19 05:34) Cbc With Automated Diff (09/19/19 06:00) Comprehensive Metabolic Panel (09/19/19 06:00) Protime With Inr (09/19/19 06:00) Partial Thromboplastin Time (09/19/19 06:00) Ua Culture If Indicated (09/19/19 06:00) Catheter(Urinary) Insert & Ass 03,15 (09/19/19 06:00) Fentanyl Injection (Sublimaze Injection (09/19/19 06:30) Urine Culture (09/19/19 05:44) Vital Signs/I&O 09/19/19 05:40 Temp 36.9 Pulse 60 Resp 16 B/P (MAP) 152/85 (107) Pulse Ox 95 O2 Delivery Room Air Progress Progress Note : Progress Note NO DETERIORATION IN PT'S CONDITION DURING ER STAY Diagnostic Imaging Comments CXR--CARDIOMEGALY, MILD VASCULAR CONGESTION XRAYS PELVIS/LEFT HIP--SUBCAPITAL LEFT HIP FRACTURE PENDING RADIOLOGIST REVIEW Reviewed: Discussed w/Radiologist Departure Communication (Admissions) [phone]--CALLED DR. SALMON, HE DOES NOT START CALL UNTIL 0700. ADVISES TO CALL DR. ABDULLAHI [phone]--CALLED DR. ABDULLAHI, MESSAGE LEFT ON CELL 0644--CALLED DR. MCCONNELL , PCP AND SHE WILL SEE HIM IN CONSULT. [phone]--CALLED DR. ABDULLAHI, MESSAGE LEFT ON CELL 0708--CALLED DR. ABDULLAHI, MESSAGE LEFT ON CELL 07--SPOKE WITH DR. ABDULLAHI, HE STATES THAT PT NEEDS TO BE ADMITTED TO MEDICINE, AND HE WILL SEE PT IN CONSULT. Impression Primary Impression: Closed left hip fracture Disposition: ADMITTED INPATIENT Condition: Stable Admissions Decision to Admit Reason: Admit from ER (Trauma) Decision to Admit/Date: Sep 19, 2019 Time/Decision to Admit Time: 06:45 Departure-Patient Inst. Referrals: LORAINE MCCONNELL MD (PCP) Primary Care Physician MICHAEL MCELROY DO Sep 19, 2019 05:55
[2019-09-19 06:24] LABS: BASOPHILS % (AUTO) 0 % (0-10); EOSINOPHILS # (AUTO) 0.1 10^3/uL (0.0-0.3); EOSINOPHILS % (AUTO) 1 % (0-10); HEMATOCRIT 39 % (40-54); HEMOGLOBIN 13.3 G/DL (13.3-17.7); LYMPHOCYTES # (AUTO) 2.2 X 10^3 (1.0-4.0); LYMPHOCYTES % (AUTO) 20 % (12-44); MEAN CORPUSCULAR HEMOGLOBIN 32 PG (25-34); MEAN CORPUSCULAR HGB CONC 34 G/DL (32-36); MEAN CORPUSCULAR VOLUME 93 FL (80-99); MEAN PLATELET VOLUME 10.1 FL (7.4-10.4); MONOCYTES % (AUTO) 9 % (0-12); NEUTROPHILS # (AUTO) 7.4 X 10^3 (1.8-7.8); NEUTROPHILS % (AUTO) 70 % (42-75); PLATELET COUNT 266 10^3/uL (130-400); RED CELL DISTRIBUTION WIDTH 13.2 % (10.0-14.5); WHITE BLOOD COUNT 10.6 10^3/uL (4.3-11.0)
[2019-09-19] MEDS ORDERED: fentaNYL INJECTION 100 MCG/2 ML AMP IVP STA (06:30)
[2019-09-19 06:33] LABS: ALBUMIN 3.4 GM/DL (3.2-4.5); CHLORIDE 108 MMOL/L (98-107); SODIUM 139 MMOL/L (135-145)
[2019-09-19 06:35] LABS: CALCIUM 10.4 MG/DL (8.5-10.1); GLUCOSE 128 MG/DL (70-105); PROTHROMBIN TIME PATIENT 13.8 SEC (12.2-14.7)
[2019-09-19 06:36] LABS: TOTAL PROTEIN 7.3 GM/DL (6.4-8.2)
[2019-09-19 06:37] LABS: CARBON DIOXIDE 21 MMOL/L (21-32)
[2019-09-19 06:38] LABS: BILIRUBIN,TOTAL 0.9 MG/DL (0.1-1.0)
[2019-09-19 06:39] LABS: ALKALINE PHOSPHATASE 79 U/L (40-136); CREATININE SERUM 1.09 MG/DL (0.60-1.30); GFR ESTIMATED > 60
[2019-09-19 06:40] LABS: BUN/CREATININE RATIO 18
[2019-09-19 06:42] LABS: ALANINE AMINOTRANSFERASE 25 U/L (0-55)
--- NOTE | 2019-09-19 06:49 | Diagnostic Imaging Report ---
EXAMINATION: Pelvis COMPARISON: CT abdomen pelvis August 19, 2015. HISTORY: 84-year-old male, fall. Left hip pain. FINDINGS: The pubic symphysis and sacroiliac joints are normally aligned. There are advanced degenerative changes at L4-L5 and L5-S1. The right hip is not obviously dislocated. There are technical limitations of the exam relating to difficulties with exposure. There is a displaced fracture involving the left femoral neck with the distal fracture fragment being superiorly displaced by an estimated 2.6 cm. There is no pronounced joint space loss of either hip. IMPRESSION: 1. Displaced fracture involving the left femoral neck. Dictated by: Dictated on workstation # [id number]
--- NOTE | 2019-09-19 06:51 | Diagnostic Imaging Report ---
EXAMINATION: Chest radiograph, portable AP view. DATE: 09/19/2019 6:38 AM hours. INDICATION: 84-year-old male, left hip fracture. COMPARISON: May 14, 2017. FINDINGS: Heart size and mediastinal contours are unchanged. There is no identified pneumothorax. There is no large pleural effusion. There are bilateral interstitial opacities with a similar appearance dating back to May 14, 2017. There is no identified interval airspace consolidation. IMPRESSION: 1. Interstitial opacities with a similar appearance dating back to May 14, 2017 which are most suggestive of chronic lung changes. Recurrent pulmonary edema would be difficult to exclude. Atypical infectious etiology is less likely given the stable appearance since May 14, 2017. Dictated by: Dictated on workstation # [id number]
[2019-09-19 07:13] LABS: PH,URINE 6.5 (5-9)
[2019-09-19 07:14] LABS: BILIRUBIN,URINE NEGATIVE (NEGATIVE); KETONES,URINE NEGATIVE (NEGATIVE); LEUKOCYTE ESTERASE ,URINE 3+ (NEGATIVE); NITRITE,URINE NEGATIVE (NEGATIVE); PROTEIN,URINE 1+ (NEGATIVE)
[2019-09-19 07:15] LABS: CLARITY,URINE CLOUDY; COLOR,URINE YELLOW
[2019-09-19 07:18] LABS: BACTERIA,URINE MODERATE /HPF; WBC,URINE TNTC /HPF
[2019-09-19 07:21] LABS: GLUCOSE, URINE (UA) NEGATIVE (NEGATIVE)
--- NOTE | 2019-09-19 08:05 | NUR ---
1000 ml cloudy dark orange urine drained from pt ray bag at this time.
--- NOTE | 2019-09-19 09:39 | History & Physical ---
History of Present Illness History of Present Illness Reason for visit/HPI PT IS AN 84 Y/O MALE WHO IS KNOWN TO ME FROM CLINIC. HE PRESENTED TO THE HOSPITAL WITH A FALL AT HOME WHEN HE WAS GETTING UP TO USE THE RESTROOM. HE STATES THAT HE THINKS IT BROKE THEN HE FELL, BUT HE IS UNSURE. HIS STATES THAT SHE HEARD HIM FALL AND RUSHED TO GET TO HIM, HAD TO CALL 911 AND HE WAS RUSHED TO THE HOSPITAL ER, FOUND TO HAVE LEFT HIP FRACTURE AND UTI. PT WAS ADMITTED TO THE HOSPITAL FOR FURTHER WORK-UP AND MANAGEMENT. Date of Admission Sep 19, 2019 at 07:32 Date Seen by a Provider: Sep 19, 2019 Time Seen by a Provider: 08:20 Attending Physician Loraine Allan MD Admitting Physician Loraine Allan MD Consult ORTHO, UROLOGY Allergies and Home Medications Allergies Coded Allergies: No Known Drug Allergies (Unverified , 09/24/11) Home Medications Amlodipine Besylate 10 Mg Tablet, 10 MG PO DAILY, (Reported) Atorvastatin Calcium 40 Mg Tablet, 40 MG PO HS, (Reported) Finasteride 5 Mg Tablet, 5 MG PO DAILY, (Reported) Hydralazine HCl 10 Mg Tablet, 20 MG PO TID, (Reported) TAKES 2 TABLETS TID Potassium Chloride 20 Meq Tab.er.prt, 40 MEQ PO BID, (Reported) TAKES 2 TABLETS BID Tamsulosin HCl 0.4 Mg Cap, 0.4 MG PO DAILY, (Reported) Patient Home Medication List Home Medication List Reviewed: Yes Past Ppeifps-Uvqbeo-Paxvcc Hx Past Med/Social Hx: Reviewed Nursing Past Med/Soc Hx, Reviewed and Corrections made Patient Social History Marrital Status: Living Status: LIVES AT HOME WITH SPOUSE Alcohol Use: Rarely Uses Recreational Drug Use: No Smoking Status: Never a Smoker 2nd Hand Smoke Exposure: No Physical Abuse Screen: No Sexual Abuse: No Recent Foreign Travel: No Contact w/other who traveled: No Recent Hopitalizations: No Recent Infectious Disease Expo: No Immunizations Up To Date Date of Pneumonia Vaccine: Sep 24, 2011 Seasonal Allergies Seasonal Allergies: Yes Past Medical History Surgeries: Vasectomy Cardiac: Chronic Edema/Swelling, High Cholesterol, Hypertension Neurological: Stroke Reproductive: No Genitourinary: Benign Prostatic Hyperpl, Prostate Problems, Renal Failure Musculoskeletal: Arthritis HEENT: Cataract Loss of Vision: Left Hearing Impairment: Bilateral Hearing Aide History of Blood Disorders: No Family History Reviewed Nursing Family Hx Heart Disease, Hypertension Review of Systems Constitutional: No chills, No fever; malaise, weakness EENTM: hearing loss; No throat pain Respiratory: No cough, No dyspnea on exertion Cardiovascular: No chest pain; edema; No palpitations Gastrointestinal: abdominal pain Genitourinary: frequency, hematuria, incontinence Musculoskeletal: joint pain (LEFT HIP), muscle weakness Skin: no symptoms reported Psychiatric/Neurological: Denies Anxiety, Denies Depressed; Weakness All Other Systems Reviewed Negative Unless Noted: Yes Physical Exam Vital Signs Vital Signs - First Documented 09/19/19 09/20/19 05:40 20:48 Temp 36.9 Pulse 60 Resp 16 B/P (MAP) 152/85 (107) Pulse Ox 95 O2 Delivery Room Air FiO2 92 Capillary Refill : Less Than 3 Seconds Height, Weight, BMI Height: 6'1.00" Weight: 212lbs. 0.0oz. 96.954445un; 27.23 BMI Method:Stated General Appearance: WD/WN, Mild Distress (DUE TO PAIN) Eyes: Bilateral Eye Normal Inspection, Bilateral Eye PERRL, Bilateral Eye EOMI HEENT: PERRL/EOMI, Pharynx Normal Neck: Full Range of Motion, Normal Inspection, Non Tender, Supple Respiratory: Chest Non Tender, Lungs Clear, Normal Breath Sounds, No Accessory Muscle Use, No Respiratory Distress Cardiovascular: Regular Rate, Rhythm, Normal Peripheral Pulses Gastrointestinal: Normal Bowel Sounds, Soft, Tenderness (OVER BLADDER AND RLQ) Rectal: Deferred Back: Normal Inspection Extremity: Normal Capillary Refill, Pedal Edema, Other (TTP OVER LEFT LATERAL HIP) Neurologic/Psychiatric: Alert, Oriented x3, No Motor/Sensory Deficits, Normal Mood/Affect, batter 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 STREETER - TREATMENT WITH IV ANTIBIOTICS -STARTED ON ZOSYN DUE TO ABDOMINAL PAIN - WAITING ON CULTURE REPORT - BROAD SPECT COVERAGE. ABDOMINAL PAIN - PLAN CT SCAN TODAY HYPERTENSION - WAIT ON MEDICATION RECONCILIATION CHRONIC PROSTATIC ENLARGEMENT (10CM) - DEFER TO DR. SYL. HX RENAL FAILURE - STABLE Admission Diagnosis LEFT HIP FRACTURE HEMATURIA PYURIA ABDOMINAL PAIN HYPERTENSION CHRONIC PROSTATIC ENLARGEMENT (10CM) HX RENAL FAILURE Admission Status: Inpatient Order (span 2 midnights) Reason for Inpatient Admission: LEFT HIP FX - WILL NEED AT LEAST 3-4 DAYS FOR SURGERY, STRENGTHENING - FURTHER WORK- UP OF ABD PAIN LORAINE ALLAN MD Sep 19, 2019 09:39
[2019-09-19] MEDS ORDERED: fentaNYL INJECTION 100 MCG/2 ML AMP IVP PRN ×2 (09:45→14:45)
[2019-09-19] MEDS ORDERED: PIPERACILLIN/TAZO 4.5 GM/NS 100 ML IV NR ×2 (10:30)
[2019-09-19] MEDS ORDERED: ceFAZolin 2 GM IV Premixed 50 ML IV ONE (11:00)
[2019-09-19] MEDS ORDERED: NEO/POLY/BAC (NEOSPORIN) OINT 15 GM TUBE ONE (11:03)
--- NOTE | 2019-09-19 11:05 | Consultation - Ortho ---
Consult - Ortho Subjective Date of Exam 09/19/19 Chief Complaint Displaced subcapital fracture left hip HPI/Events since last exam Mr. Espinoza is an 84-year-old white male who fell this morning going into his bathroom. He thinks his hip fractured and then he fell onto his left side. He is brought to the emergency room worries evaluated and x-rayed noted to have a displaced subcapital fracture left hip. He states he hasn't had any problems with his left hip prior to the fall. He has ambulated in the past with a walker after a stroke that involved his left side. He denies any other injuries. He does have a history of chronic lower back pain. This is unchanged. No injuries to the upper extremities. Medical, Surgical History Reviewed and no additions or changes Social History Reviewed and no additions or changes Family History Reviewed and no additions or changes Review of Systems Reviewed and no additions or changes Allergies: Coded Allergies: No Known Drug Allergies (Unverified , 09/24/11) Home Meds Active Scripts Ondansetron (Zofran Odt) 4 Mg Tab.rapdis, 4 MG SL Q4H PRN for NAUSEA/VOMITING- 1ST LINE, #10 TAB Prov:YOLANDA CESPEDES MD 05/14/17 Cefdinir (Cefdinir) 300 Mg Capsule, 300 MG PO BID, #14 CAP Prov:YOLANDA CESPEDES MD 05/14/17 Doxycycline Hyclate (Doxycycline Hyclate) 100 Mg Tablet, 100 MG PO BID, #20 TAB Prov:YOLANDA CESPEDES MD 05/14/17 Reported Medications Cranberry Conc/Ascorbic Acid (Cranberry 12,600 mg Softgel) 1 Each Capsule, 1 EACH PO DAILY, CAP 01/31/15 Multivitamin (Multi-Day Vitamins) 1 Each Tablet, 1 EACH PO DAILY, TAB 01/31/15 Atorvastatin Calcium (Atorvastatin Calcium) 10 Mg Tablet, 10 MG PO DAILY, TAB 01/31/15 Furosemide (Lasix) 80 Mg Tablet, 80 MG PO EVERY OTHER DAY, TAB 01/31/15 Senna (Senokot S) 1 Ea Tablet, 1 EA PO BID PRN 10/20/12 Amlodipine Besylate (NORVASC TABLET) 10 Mg Tablet, 10 MG PO DAILY 10/20/12 Hydralazine Hcl (Apresoline) 10 Mg Tablet, 20 MG PO TID TAKE 2 (10MG) TABS 10/07/12 Tamsulosin Hcl (Flomax) 0.4 Mg Cap, 0.4 MG PO DAILY 05/24/12 Finasteride (Finasteride) 5 Mg Tablet, 5 MG PO DAILY 05/21/12 Objective Exam Constitutional: [] HEENT: [] Neck: [No pain with range of motion or palpation] Cardiovascular: [] Respiratory: [] Gastrointestinal: [] Genitourinary: [] Skin: [] Back/Spine: Mild pain with palpation lower back which is unchanged from his chronic back pain prior to the fall [] Extremities: [] Upper extremitiesfull range of motion without pain. No crepitation. No deformity. No pain with palpation. Normal sensation with good capillary refill. Equal pulses. Equal strength Lower extremitiespain with any motion or palpation left hip. No pain right hip with good motion. No pain either knee. No deformity. No pain either ankle. Good motion without pain. 3+ pitting edema no lower legs and feet. Normal sensation to the foot and toes. Equal pulses. Neurologic: [] Psychiatric: [] Hematologic/lymphatic/immunologic: [] Vital Signs Vital Signs Date Time Temp Pulse Resp B/P (MAP) Pulse Ox O2 Delivery O2 Flow Rate FiO2 09/19/19 08:54 36.0 80 16 162/73 90 Room Air 09/19/19 08:45 79 18 148/78 92 Room Air 09/19/19 05:40 36.9 60 16 152/85 (107) 95 Room Air Lab Results Laboratory Tests 09/19/19 05:44: Urine Color YELLOW, Urine Clarity CLOUDYH, Urine pH 6.5, Urine Specific [place] 1.010L, Urine Protein 1+H, Urine Glucose (UA) NEGATIVE, Urine Ketones NEGATIVE, Urine Nitrite NEGATIVE, Urine Bilirubin NEGATIVE, Urine Urobilinogen 0.2, Urine Leukocyte Esterase 3+H, Urine RBC (Auto) 1+H, Urine RBC 10-25H, Urine WBC TNTCH, Urine Squamous Epithelial Cells NONE, Urine Crystals NONE, Urine Bacteria MODERATEH, Urine Casts NONE, Urine Mucus NEGATIVE, Urine Culture Indicated YES 09/19/19 06:08: White Blood Count 10.6, Red Blood Count 4.19L, Hemoglobin 13.3, Hematocrit 39L, Mean Corpuscular Volume 93, Mean Corpuscular Hemoglobin 32, Mean Corpuscular Hemoglobin Concent 34, Red Cell Distribution Width 13.2, Platelet Count 266, Mean Platelet Volume 10.1, Neutrophils (%) (Auto) 70, Lymphocytes (%) (Auto) 20, Monocytes (%) (Auto) 9, Eosinophils (%) (Auto) 1, Basophils (%) (Auto) 0, Neutrophils # (Auto) 7.4, Lymphocytes # (Auto) 2.2, Monocytes # (Auto) 1.0, Eosinophils # (Auto) 0.1, Basophils # (Auto) 0.0, Prothrombin Time 13.8, INR Comment 1.0, Activated Partial Thromboplast Time 32, Sodium Level 139, Potassium Level 4.0, Chloride Level 108H, Carbon Dioxide Level 21, Anion Gap 10, Blood Urea Nitrogen 20H, Creatinine 1.09, Estimat Glomerular Filtration Rate > 60, BUN/Creatinine Ratio 18, Glucose Level 128H, Calcium Level 10.4H, Corrected Calcium 10.9H, Total Bilirubin 0.9, Aspartate Amino Transf (AST/SGOT) 24, Alanine Aminotransferase (ALT/SGPT) 25, Alkaline Phosphatase 79, Total Protein 7.3, Albumin 3.4 Imaging X-rays of the left hip and pelvis show a displaced subcapital fracture. Minimal osteoarthritic changes are noted Assessment and Plan Assessment Left hip fracture Problem List Unchanged Plan Treatment options were discussed with the patient and his . I talked to him the length about surgical treatment. I do not feel that nonoperative treatment is an option since he is an active patient. I talked to him about hemiarthroplasty both cemented and uncemented. Due the fact that is [age] recommend proceeding with a cemented bipolar hemiarthroplasty. I explained to them that reducing the fracture and screw fixation is not option at this age. They would like to proceed with cemented bipolar hemiarthroplasty. I discussed the procedure risk complications. We will treat with antibiotics pre-and postop. Lovenox postop. Also discussed blood loss and possibility of a transfusion. No further questions. He is scheduled for approximately noon today. I also talked to Dr. Allan and she didn't see any problems with him proceedi ng with surgery. He does have some prostate issues and Dr. Diehl has been consulted Final Diagonsis Displaced subcapital fracture left hip Level of the visit: Level 3 MIKE ABDULLAHI MD Sep 19, 2019 11:05
[2019-09-19] MEDS ORDERED: NS 100 ML (IVPB) BAG IV ONE (11:15)
[2019-09-19] MEDS ORDERED: IOHEXOL 350 MG/ML 100 ML (OMNIPAQUE 350) VIAL IV ONE (11:15)
[2019-09-19] MEDS ORDERED: HOLD METFORMIN - RECEIVED CONTRAST 20 ML VIAL IV SCH (11:15)
[2019-09-19] MEDS ORDERED: fentaNYL INJECTION 100 MCG/2 ML AMP ONE (11:27)
[2019-09-19] MEDS ORDERED: proPOfol 200 MG/20 ML (DIPRIVAN) VIAL IV ONE (11:27)
--- NOTE | 2019-09-19 11:43 | NUR ---
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 PT WILL BE TAKEN TO OR AFTER CT COMPLETE, IV FLUIDS, NASAL SWABS FOR COVID AND MRSA GIVEN TO [employer]. ANCEF NOT AVAILABLE ON FLOOR, EXPER[employer] AWARE.
[2019-09-19] MEDS: LACTATED RINGERS 1,000 ML IV PRN ×2 (11:47→13:19)
[2019-09-19] MEDS ORDERED: MIDAZOLAM 2 MG/2 ML (VERSED) VIAL ONE (12:01)
--- NOTE | 2019-09-19 12:10 | Diagnostic Imaging Report ---
PROCEDURE: CT abdomen and pelvis with contrast, rule out appendicitis. TECHNIQUE: Multiple contiguous axial images were obtained through the abdomen and pelvis after the administration of intravenous contrast. All CT scans use one or more of the following dose optimizing techniques: automated exposure control, MA and/or KvP adjustment based on patient size and exam type or iterative reconstruction. INDICATION: Right-sided pain. FINDINGS: There is massive heterogeneous nodular prostatomegaly, increased from the comparison study of 2016. In axial dimensions, the prostate measures 10 cm transverse x 12 cm AP and approximately 9.5 cm cephalocaudal. Diverticulation at the urinary bladder fundal portion is a chronic finding, however severe nodular new circumferential bladder wall thickening has occurred with the bladder wall averaging thickness of 2.5 cm. There is edema of the pelvic perivesical fat as well as some perivesical pelvic lymphadenopathy is a new finding. Largest node in the distal right external iliac chain is 2.2 cm, node adjacent to the 2 o'clock position of the lower thickened urinary bladder measured 1.8 cm, and 1.5 cm left-sided perivesical nodes present. While the findings may all reflect severe cystitis and reactive regional lymphadenopathy, neoplasm of prostatic and/or bladder origin could not be excluded. The urinary bladder is catheterized, likely accounting for its intraluminal gas. There is posterior angulation of fracture at the subcapital femoral neck. No dislocation. No other acute bony abnormality. There are renal cortical cysts bilaterally without hydroureteronephrosis. No solid or enhancing renal mass. The adrenals are negative. There are few gallstones present with no evidence for acute cholecystitis. There are cysts in the left and right hepatic lobes. There is a small hiatal hernia. The spleen is negative. Pancreas is unremarkable. The atherosclerotic aorta shows some mild ectasia at its infrarenal segment without rupture dilating to maximal diameter of 2.7 cm. I cannot identify the appendix but there is no pericecal inflammation or evidence for acute appendicitis. There were no findings of diverticulitis. IMPRESSION: 1. Progressive massive prostatomegaly. New severe nodular circumferential irregular thickening of the urinary bladder wall, perivesical edema, and pelvic lymphadenopathy. The findings could reflect reactive vicky disease and severe cystitis, however neoplasm of prostatic and/or bladder origin could not be excluded with regional vicky metastases. 2. Posterior angulation of displaced subcapital femoral neck fracture. There are lucencies along the fracture margin. A pathological fracture could not be absolutely excluded, correlate clinically. No other acute or suspect bony findings. 3. Cystic kidneys without hydronephrosis. 4. Cholelithiasis without evidence for acute cholecystitis. Benign hepatic cysts noted, chronic. 5. 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 Dictated by: Dictated on workstation # [id number]
[2019-09-19] MEDS ORDERED: SEVOFLURANE (ULTANE) 15 ML INHAL SOLN ONE ×3 (12:49→13:46)
[2019-09-19] MEDS ORDERED: ROCURONIUM 10 MG/ML 5 ML SYRINGE IV ONE (12:50)
[2019-09-19] MEDS ORDERED: ONDANSETRON 4 MG/2 ML (SDV) Z0FRAN ONE (12:50)
[2019-09-19] MEDS ORDERED: GLYCOPYRROLATE 0.2 MG/ML (ROBINUL) 2 ML VIAL ONE (12:51)
[2019-09-19] MEDS ORDERED: NEOSTIGMINE 3 MG/3 ML VIAL ONE (12:51)
[2019-09-19] MEDS ORDERED: LIDOCAINE PF 2% 5 ML (XYLOCAINE) VIAL ONE (12:56)
[2019-09-19] MEDS ORDERED: ONDANSETRON 4 MG/2 ML (SDV) Z0FRAN IVP PRN (14:30)
[2019-09-19] MEDS ORDERED: morphine INJ 10 MG/ML 1ML (SYR OR VIAL) IVP ONE (14:30)
[2019-09-19] MEDS ORDERED: oxyCODONE/APAP 5/325MG (PERCOCET 5) TABLET PO PRN (14:45)
--- NOTE | 2019-09-19 14:50 | Operative Report - Ortho ---
Operative Report Surgeon (s)/Floor Associate (s) Surgeon MIKE ABDULLAHI MD Floor Associate n/a Pre-Operative Diagnosis displaced subcapital fracture left hip Post-Operative Diagnosis same Operative Report Date of Procedure: Sep 19, 2019 Name of Procedure Performed: Cemented bipolar hemiarthroplasty left hip using a number 5 cemented stem with a 8.5 mm neck and a 57 x 28 mm bipolar head Description & Findings The patient was seen in the preoperative area and his left leg was marked preop. He was taken to the operating room and placed on the OR table. After general anesthesia was placed in the lateral decubitus position with left side up on the padded peg board. Timeout was then performed and all agreed. At this point the left hip was prepped and draped in the usual sterile manner. Patient was given 2 g Ancef IV preoperatively. A skin incision was made over the lateral aspect of the hip extending from the greater trochanter posterior and proximal and from the greater trochanter distal in line with the femoral shaft. This was taken down through subcutaneous tissue. Bleeders are cauterized. The iliotibial band and gluteal fascia were then split in line with the skin incision and retracted with a Charnley retractor. The hip was then flexed and internally rotated. The soft tissue was taken off short external rotators. Piriformis tendon was tagged and the short external rotators were taken off the posterior aspect of the greater trochanter with cautery. Capsule was intact. The capsule was then teed and the head was removed without difficulty using a corkscrew. This was measure d and measured approximately 56 mm. At this point a proximal femoral retractor was inserted. The neck was trimmed with a saw to approximately 12 mm above the lesser trochanter. Actually the greater trochanter was noted. Proximal femur was then prepared using a box osteotome and T-handled reamers and broaches up to a number 5 stem which fit very well. The head was trialed using a 55 then 56 and 57 mm head. The 57 mm head fit very well. This point the hip was trialed using the number 5 stem with a 5 mm neck and a 57 mm head. The hip was stable but there was some pistoning so a 8.5 mm neck was used and the hip was found to be stable with no pistoning. At this point the trials were removed. The cement plug was placed into the canal approximately 2 cm distal to the tip of the broach. The canal was then irrigated and suctioned as the cement was prepared for injection using the cement gun. Once the cement was ready the cement was injected into the proximal femur and pressurized proximally. The stem was then inserted and held in place in approximately 10-15 of anteversion. Once the cement was set, the acetabulum was inspected no debris was noted in the acetabulum. The cement was removed with a curet around the neck. The acetabulum was irrigated. The bipolar head was placed on the stem and tapped in position. Hip was then reduced and again found to be stable with no pistoning. At this point the wound was irrigated with the pressurized irrigation. The capsule was closed with #1 Vicryl. 2 drill holes are placed into the greater trochanter and a suture from the capsule was placed through one drill hole and from the performance through another. The hip was then placed in neutral and the sutures were tied over the posterior aspect of the greater trochanter. Wound was again irrigated with pressurized irrigation. The Charnley retractor was removed. The iliotibial band and gluteal fascia were closed with interrupted [id number] #1 Vicryl sutures. Subcutaneous tissue was then irrigated and closed with oh and 2-0 Vicryl. The skin was then closed with fei. The wound was dressed with antibiotic ointment, Adaptic and 4 x 4's ABDs and then taped in position. An abductor pillow was placed between the legs. Patient was then transferred to his hospital bed. His legs were equal length. He had external rotation of both legs which was equal. Equal pulses. He was then transferred to recovery room in good condition, he tolerated the procedure well, X-rays were obtained of the left hip AP only in recovery room showed excellent position of the bipolar hemiarthroplasty seated within the acetabulum. Estimated blood [id number] mL's Replacementnone Drainsnone Complicationsnone n/a Anesthesia Type Gen. Estimated Blood Loss 200 mL's Packing none. Specimen(s) collected/removed Femoral head MIKE ABDULLAHI MD Sep 19, 2019 14:50
--- NOTE | 2019-09-19 15:11 | Diagnostic Imaging Report ---
INDICATION: Postop left hip. FINDINGS: A single view shows total arthroplasty of the left hip. The components are in good alignment. No evidence of hardware loosening. No fractures. Skin fei are present. IMPRESSION: Satisfactory appearing postop arthroplasty left hip. Dictated by: Dictated on workstation # [id number]
--- NOTE | 2019-09-19 15:20 | NUR ---
PT ARRIVED TO FLOOR FROM RECOVERY, LHIP/CDI. PT CURRENTLY ON 6L VIA OXY MASK. NO NEEDS VOICED AT THIS TIME, WILL CONTINUE TO MONITOR. Addendum: 09/19/19 at 1804 by SEE BOO RN REPORT RECEIVED FROM REGINALDO HERNANDEZ AT [facility]
--- NOTE | 2019-09-19 16:39 | NUR ---
DR STREETER ASKED TO LOOK AT CT SCAN WHEN HE CAN PER DR MCCONNELL.
[2019-09-19] MEDS: PIPERACILLIN/TAZOBACTAM (BULK) 4.5 GM in NS (IVPB) 100 ML IV SCH ×2 (16:55→23:56)
[2019-09-19] MEDS: D5 1/2 NS 1000 ML IV SOLUTION 1,000 ML IV SCH ×2 (16:55→20:23)
[2019-09-19] MEDS ORDERED: FUROSEMIDE 40 MG/4 ML INJ (LASIX) IVP NR (17:30)
[2019-09-19] MEDS: ceFAZolin 2 GM IV Premixed 50 ML IV SCH (20:22)
[2019-09-20] VITALS: BP 146/71
[2019-09-20 03:38] VITALS: BP 130/68
[2019-09-20] MEDS: ceFAZolin 2 GM IV Premixed 50 ML IV SCH (03:38)
[2019-09-20 05:16] LABS: BASOPHILS % (AUTO) 0 % (0-10); EOSINOPHILS % (AUTO) 0 % (0-10); HEMATOCRIT 36 % (40-54); HEMOGLOBIN 12.1 G/DL (13.3-17.7); LYMPHOCYTES # (AUTO) 1.2 X 10^3 (1.0-4.0); LYMPHOCYTES % (AUTO) 5 % (12-44); MEAN CORPUSCULAR HEMOGLOBIN 32 PG (25-34); MEAN CORPUSCULAR HGB CONC 34 G/DL (32-36); MEAN CORPUSCULAR VOLUME 94 FL (80-99); MEAN PLATELET VOLUME 10.2 FL (7.4-10.4); MONOCYTES # (AUTO) 0.9 X 10^3 (0.0-1.0); MONOCYTES % (AUTO) 4 % (0-12); NEUTROPHILS % (AUTO) 90 % (42-75); PLATELET COUNT 227 10^3/uL (130-400); RED CELL DISTRIBUTION WIDTH 13.6 % (10.0-14.5); WHITE BLOOD COUNT 22.1 10^3/uL (4.3-11.0)
[2019-09-20 05:25] LABS: ALBUMIN 2.7 GM/DL (3.2-4.5)
[2019-09-20 05:26] LABS: POTASSIUM 3.4 MMOL/L (3.6-5.0)
[2019-09-20 05:27] LABS: CALCIUM 9.1 MG/DL (8.5-10.1)
[2019-09-20 05:28] LABS: TOTAL PROTEIN 5.9 GM/DL (6.4-8.2)
[2019-09-20 05:30] LABS: BILIRUBIN,TOTAL 0.7 MG/DL (0.1-1.0)
[2019-09-20 05:32] LABS: CREATININE SERUM 1.45 MG/DL (0.60-1.30)
[2019-09-20] MEDS: D5 1/2 NS 1000 ML IV SOLUTION 1,000 ML IV SCH ×2 (06:25→17:19)
--- NOTE | 2019-09-20 07:51 | Progress Note ---
Subjective Subjective Date Seen by Provider: Sep 20, 2019 Time Seen by Provider: 07:00 Pt alert and oriented, denies any issues today and has no complaints. He states he remembers traveling through the halls yesterday before surgery, but not much else. He denies abdominal pain today and his catheter bag had light yellow urine today compared to red with puss yesterday. He has not had a BM yet and says he is normally pretty regular with BM everyday. He is not in any pain currently, but has been in bed since surgery not moving much. Review of Systems General: No Chills, No Fatigue HEENT: No Head Aches, No Visual Changes, No Dysphasia, No Sinus Congestion, No Sore Throat Pulmonary: No Dyspnea, No Cough Cardiovascular: No: Chest Pain, Palpitations Gastrointestinal: No: Nausea, Vomiting, Abdominal Pain, Diarrhea, Constipation Genitourinary: No Dysuria, No Hematuria, No Retention Musculoskeletal: No: leg pain Neurological: No: Weakness, Numbness Objective Exam Vital Signs Vital Signs - First Documented 09/19/19 05:40 Temp 36.9 Pulse 60 Resp 16 B/P (MAP) 152/85 (107) Pulse Ox 95 O2 Delivery Room Air Capillary Refill : Less Than 3 SecondsLess Than 3 Seconds General Appearance: No Apparent Distress, WD/WN HEENT: PERRL/EOMI, Moist Mucous Membranes Neck: Full Range of Motion, Normal Inspection Respiratory: Chest Non Tender, Lungs Clear, Normal Breath Sounds, No Accessory Muscle Use, No Respiratory Distress Cardiovascular: Regular Rate, Rhythm; No No Edema (mild bilateral pedal ); Normal Peripheral Pulses Gastrointestinal: Normal Bowel Sounds, Non Tender, Soft Rectal: Deferred Extremity: Normal Inspection, No Calf Tenderness, Pedal Edema (mild) Neurologic/Psychiatric: Alert, Oriented x3, Normal Mood/Affect Skin: Normal Color, Warm/Dry Results Lab Laboratory Tests 09/19/19 12:53: 09/20/19 04:55: White Blood Count 22.1H, Red Blood Count 3.83L, Hemoglobin 12.1L, Hematocrit 36L , Mean Corpuscular Volume 94, Mean Corpuscular Hemoglobin 32, Mean Corpuscular Hemoglobin Concent 34, Red Cell Distribution Width 13.6, Platelet Count 227, Mean Platelet Volume 10.2, Neutrophils (%) (Auto) 90H, Lymphocytes (%) (Auto) 5L , Monocytes (%) (Auto) 4, Eosinophils (%) (Auto) 0, Basophils (%) (Auto) 0, Neutrophils # (Auto) 20.0H, Lymphocytes # (Auto) 1.2, Monocytes # (Auto) 0.9, Eosinophils # (Auto) 0.0, Basophils # (Auto) 0.0, Sodium Level 141, Potassium Level 3.4L, Chloride Level 109H, Carbon Dioxide Level 22, Anion Gap 10, Blood Urea Nitrogen 24H, Creatinine 1.45H, Estimat Glomerular Filtration Rate 46, BUN/Creatinine Ratio 17, Glucose Level 167H, Calcium Level 9.1, Corrected Calcium 10.1, Total Bilirubin 0.7, Aspartate Amino Transf (AST/SGOT) 28, Alanine Aminotransferase (ALT/SGPT) 16, Alkaline Phosphatase 66, Total Protein 5.9L, Albumin 2.7L Assessment/Plan Assessment/Plan Assessment and Plan LEFT HIP FRACTURE PYURIA HEMATURIA ABDOMINAL PAIN HYPERTENSION HX PROSTATE HYPERTROPHY PLAN: LEFT HIP FRACTURE -DR ABDULLAHI CONSULTED, PERFORMED CEMENTED BIPOLAR HEMIARTHROPLASTY LEFT HIP 09/18 -CONTINUE PAIN MANAGEMENT -OT/PT ONCE CLEARED BY ORTHOPEDICS -MONITOR HYPERTENSION -RESTART HOME MEDICATIONS -MONITOR PYURIA -CONTINUE ZOSYN, CEFAZOLIN -IV FLUIDS -MONITOR ABDOMINAL PAIN -IMPROVED TODAY -MONITOR URINE OUTPUT HEMATURIA -CHRONIC ISSUE RELATED TO PROSTATIC HYPERTROPHY -CONSULTED DR STREETER UROLOGY -IMPROVED TODAY -CT ABDOMEN PERFORMED 09/18 FINDINGS: There is massive heterogeneous nodular prostatomegaly, increased from the comparison study of 2016. In axial dimensions, the prostate measures 10 cm transverse x 12 cm AP and approximately 9.5 cm cephalocaudal. Diverticulation at the urinary bladder fundal portion is a chronic finding, however severe nodular new circumferential bladder wall thickening has occurred with the bladder wall averaging thickness of 2.5 cm. There is edema of the pelvic perivesical fat as well as some perivesical pelvic lymphadenopathy is a new finding. Largest node in the distal right external iliac chain is 2.2 cm, node adjacent to the 2 o'clock position of the lower thickened urinary bladder measured 1.8 cm, and 1.5 cm left-sided perivesical nodes present. While the findings may all reflect severe cystitis and reactive regional lymphadenopathy, neoplasm of prostatic and/or bladder origin could not be excluded. The urinary bladder is catheterized, likely accounting for its intraluminal gas. There is posterior angulation of fracture at the subcapital femoral neck. No dislocation. No other acute bony abnormality. There are renal cortical cysts bilaterally without hydroureteronephrosis. No solid or enhancing renal mass. The adrenals are negative. There are few gallstones present with no evidence for acute cholecystitis. There are cysts in the left and right hepatic lobes. There is a small hiatal hernia. The spleen is negative. Pancreas is unremarkable. The atherosclerotic aorta shows some mild ectasia at its infrarenal segment without rupture dilating to maximal diameter of 2.7 cm. I cannot identify the appendix but there is no pericecal inflammation or evidence for acute appendicitis. There were no findings of diverticulitis. IMPRESSION: 1. Progressive massive prostatomegaly. New severe nodular circumferential irregular thickening of the urinary bladder wall, perivesical edema, and pelvic lymphadenopathy. The findings could reflect reactive vicky disease and severe cystitis, however neoplasm of prostatic and/or bladder origin could not be excluded with regional vicky metastases. 2. Posterior angulation of displaced subcapital femoral neck fracture. There are lucencies along the fracture margin. A pathological fracture could not be absolutely excluded, correlate clinically. No other acute or suspect bony findings. 3. Cystic kidneys without hydronephrosis. 4. Cholelithiasis without evidence for acute cholecystitis. Benign hepatic cysts noted, chronic. 5. 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 Clinical Quality Measures DVT/VTE Risk/Contraindication: Risk Factor Score Per Nursin RFS Level Per Nursing on Admit: 4+=Very High Supervisory-Addendum Brief Verification & Attestation Participated in pt care: history, MDM, physical Personally performed: exam, history, MDM, supervision of care Care discussed with: Medical Student Procedures: n/a Results interpretation: Verified all documentation LEFT HIP FRACTURE HEMATURIA PYURIA ABDOMINAL PAIN HYPERTENSION CHRONIC PROSTATIC ENLARGEMENT (10CM) HX RENAL FAILURE LEFT HIP FRACTURE - DEFER TO ORTHO - S/P SURGICAL FIXATION - MONITOR SYMPTOMS - DISCUSSED WITH PHYSICAL THERAPY - PLANNING TO SEE IF HE WILL QUALIFY FOR INPT REHAB HEMATURIA WITH PYURIA - CONSULT TO DR. STREETER - TREATMENT WITH IV ANTIBIOTICS -STARTED ON ZOSYN DUE TO ABDOMINAL PAIN - WAITING ON CULTURE REPORT - BROAD SPECT COVERAGE. ABDOMINAL PAIN - CT SCAN SHOWED NODULAR BLADDER - DISCUSSED WITH PT AND DR. STREETER - PLANNING ON EVAL AND POSSIBLE SCOPE HYPERTENSION - WAIT ON MEDICATION RECONCILIATION CHRONIC PROSTATIC ENLARGEMENT (10CM) - DEFER TO DR. STREETER. HX RENAL FAILURE - STABLE [facility]UNIEL [facility] Sep 20, 2019 07:51 LORAINE MCCONNELL MD Sep 21, 2019 09:39
[2019-09-20 08:00] VITALS: BP 130/60
--- NOTE | 2019-09-20 08:52 | Progress Note - Ortho ---
Progress Note Subjective Date of Exam 09/20/19 Chief Complaint POD#1 cemented bipolar hemiarthroplasty left hip HPI/Events since last exam Mr. Espinoza is 1 day postop cemented bipolar hemiarthroplasty left hip. He states his hip feels much better. He hasn't been out of bed yet. No other complaints. Review of Systems Reviewed and no additions or changes Allergies: Coded Allergies: No Known Drug Allergies (Unverified , 09/24/11) Home Meds Active Scripts Ondansetron (Zofran Odt) 4 Mg Tab.rapdis, 4 MG SL Q4H PRN for NAUSEA/VOMITING- 1ST LINE, #10 TAB Prov:YOLANDA CESPEDES MD 05/14/17 Cefdinir (Cefdinir) 300 Mg Capsule, 300 MG PO BID, #14 CAP Prov:YOLANDA CESPEDES MD 05/14/17 Doxycycline Hyclate (Doxycycline Hyclate) 100 Mg Tablet, 100 MG PO BID, #20 TAB Prov:YOLANDA CESPEDES MD 05/14/17 Reported Medications Cranberry Conc/Ascorbic Acid (Cranberry 12,600 mg Softgel) 1 Each Capsule, 1 EACH PO DAILY, CAP 01/31/15 Multivitamin (Multi-Day Vitamins) 1 Each Tablet, 1 EACH PO DAILY, TAB 01/31/15 Atorvastatin Calcium (Atorvastatin Calcium) 10 Mg Tablet, 10 MG PO DAILY, TAB 01/31/15 Furosemide (Lasix) 80 Mg Tablet, 80 MG PO EVERY OTHER DAY, TAB 01/31/15 Senna (Senokot S) 1 Ea Tablet, 1 EA PO BID PRN 10/20/12 Amlodipine Besylate (NORVASC TABLET) 10 Mg Tablet, 10 MG PO DAILY 10/20/12 Hydralazine Hcl (Apresoline) 10 Mg Tablet, 20 MG PO TID TAKE 2 (10MG) TABS 10/07/12 Tamsulosin Hcl (Flomax) 0.4 Mg Cap, 0.4 MG PO DAILY 05/24/12 Finasteride (Finasteride) 5 Mg Tablet, 5 MG PO DAILY 05/21/12 Objective Exam Constitutional: [] HEENT: [] Neck: [] Cardiovascular: [] Respiratory: [] Gastrointestinal: [] Genitourinary: [] Skin: [] Back/Spine: [] Extremities: [Dressing is intact. The min left lower extremity slightly more than the right. No calf tenderness and negative Homans. He is able dorsiflex and plantarflex the foot and ankle without weakness. Normal sensation of the foot and toes. Equal pulses both lower extremities] Neurologic: [] Psychiatric: [] Hematologic/lymphatic/immunologic: [] Vital Signs Vital Signs Date Time Temp Pulse Resp B/P (MAP) Pulse Ox O2 Delivery O2 Flow Rate FiO2 09/20/19 08:00 36.2 82 20 130/60 (83) 91 Nasal Cannula 3.00 09/20/19 03:38 36.5 63 18 130/68 (88) 93 Nasal Cannula 3.00 09/20/19 00:00 36.6 70 16 146/71 (96) 93 Nasal Cannula 2.00 09/19/19 19:30 Nasal Cannula 09/19/19 19:30 36.2 75 16 139/74 (95) 90 Nasal Cannula 3.00 09/19/19 17:13 Nasal Cannula 3.00 09/19/19 17:04 93 Nasal Cannula 3.00 09/19/19 16:25 OxyMask 5.00 09/19/19 16:13 36.1 65 17 146/69 (94) 95 OxyMask 5.00 09/19/19 15:00 OxyMask 6 09/19/19 15:00 37.3 20 93/80 (84) 93 OxyMask 6 09/19/19 14:50 13 148/78 (101) 94 OxyMask 09/19/19 14:50 OxyMask 10 09/19/19 14:40 OxyMask 09/19/19 14:40 10 105/69 (81) 93 OxyMask 10 09/19/19 14:30 17 147/84 (105) 96 OxyMask 12 09/19/19 14:25 OxyMask 12 09/19/19 14:20 13 129/89 (102) 91 OxyMask 09/19/19 14:10 OxyMask 12 09/19/19 14:10 36.5 18 115/62 (79) 94 OxyMask 09/19/19 09:00 36.6 111 20 160/96 (117) 100 Room Air 09/19/19 08:54 36.0 80 16 162/73 90 Room Air I & O 09/20/19 07:00 Intake Total 2890 ml Output Total 2000 ml Balance 890 ml Lab Results Laboratory Tests 09/19/19 12:53: 09/20/19 04:55: White Blood Count 22.1H, Red Blood Count 3.83L, Hemoglobin 12.1L, Hematocrit 36L , Mean Corpuscular Volume 94, Mean Corpuscular Hemoglobin 32, Mean Corpuscular Hemoglobin Concent 34, Red Cell Distribution Width 13.6, Platelet Count 227, Mean Platelet Volume 10.2, Neutrophils (%) (Auto) 90H, Lymphocytes (%) (Auto) 5L , Monocytes (%) (Auto) 4, Eosinophils (%) (Auto) 0, Basophils (%) (Auto) 0, Neutrophils # (Auto) 20.0H, Lymphocytes # (Auto) 1.2, Monocytes # (Auto) 0.9, Eosinophils # (Auto) 0.0, Basophils # (Auto) 0.0, Sodium Level 141, Potassium Level 3.4L, Chloride Level 109H, Carbon Dioxide Level 22, Anion Gap 10, Blood Urea Nitrogen 24H, Creatinine 1.45H, Estimat Glomerular Filtration Rate 46, BU N/Creatinine Ratio 17, Glucose Level 167H, Calcium Level 9.1, Corrected Calcium 10.1, Total Bilirubin 0.7, Aspartate Amino Transf (AST/SGOT) 28, Alanine Aminotransferase (ALT/SGPT) 16, Alkaline Phosphatase 66, Total Protein 5.9L, Albumin 2.7L Assessment and Plan Assessment Doing well first day postop Problem List Unchanged Plan Physical therapy for walker ambulation weightbearing as tolerated on the left. I spoke with his and she told me that she would not be able to take care of him at home. We had talked about rehabilitation yesterday and I think that would be the best option. He was there after he had his stroke. Final Diagonsis Status post cemented bipolar hemiarthroplasty left hip for a displaced subcapital fracture Level of the visit: Level 3 Clinical Quality Measures DVT/VTE Risk/Contraindication: Risk Factor Score Per Nursin RFS Level Per Nursing on Admit: 4+=Very High MIKE ABDULLAHI MD Sep 20, 2019 08:52
[2019-09-20] MEDS: ENOXAPARIN 40 MG/0.4 ML (LOVENOX) SYR SC SCH (09:14)
[2019-09-20] MEDS: PIPERACILLIN/TAZOBACTAM (BULK) 4.5 GM in NS (IVPB) 100 ML IV SCH ×2 (09:15→17:20)
--- NOTE | 2019-09-20 09:20 | Anesthesia-General Post-Op ---
General Patient Condition Mental Status/LOC: Same as Preop Cardiovascular: Satisfactory Nausea/Vomiting: Absent Respiratory: Satisfactory Pain: Controlled Complications: Absent Post Op Complications Complications None Follow Up Care/Instructions Patient Instructions None needed. Anesthesia/Patient Condition Patient Condition Patient is doing well, no complaints, stable vital signs, no apparent adverse anesthesia problems. No complications reported per nursing. JANN BRAVO CRNA Sep 20, 2019 09:20
[2019-09-20] MEDS ORDERED: TMSL.4C PO (09:57)
[2019-09-20] MEDS ORDERED: ATOR40TA70 PO (09:57)
[2019-09-20] MEDS ORDERED: FINA5TAB6 PO (09:57)
[2019-09-20] MEDS ORDERED: AMLO10TA7 PO (09:57)
[2019-09-20] MEDS ORDERED: POTA20TA8 PO (09:57)
[2019-09-20] MEDS ORDERED: HYDR-3922 PO (09:57)
--- NOTE | 2019-09-20 10:00 | NUR ---
I SPOKE WITH THE PATIENT AND HIS , I ALSO CALLED [facility] AND GOT A MED LIST FROM THEM IN ORDER TO COMPLETE THE MED REC. FINASTERIDE 5MG 06/06/2019 #90 90DS AMLODIPINE BESYLATE 10MG 06/06/19 #90 90DS ATORVASTATIN 40MG 09/05/2019 #90 90DS TAMSULOSIN 0.4MG 09/05/2019 #90 90DS HYDRALAZINE 10MG 06/07/2019 #540 90DS KLOR-CON MEQ 20 08/22/2019 #360 90DS LASIX 20MG WAS RECENTLY FILLED FROM [facility] ON 09/18/19 BUT PATIENT HAS QUIT TAKING
--- NOTE | 2019-09-20 11:44 | Physical Therapy Evaluation ---
PT Evaluation-General Medical Diagnosis Admission Date Sep 19, 2019 at 07:32 Medical Diagnosis: left FERNANDO Onset Date: Sep 19, 2019 Therapy Diagnosis Therapy Diagnosis: impaired mobility, strength, endurance, ROM Height/Weight Height (Feet): 6 Height (Inches): 1.00 Weight (Pounds): 212 Weight (Ounces): 0.0 Precautions Precautions/Isolations: Fall Prevention, Standard Precautions Weight Bear Status Right Lower Extremity: Right Full Weight Bearing Left Lower Extremity: Left Weight Bearing/Tolerated hip precautions Referral Physician: oSny Reason for Referral: Evaluation/Treatment Medical History Additional Medical History Past Medical History Surgeries: Vasectomy Cardiac: Chronic Edema/Swelling, High Cholesterol, Hypertension Neurological: Stroke Reproductive: No Genitourinary: Benign Prostatic Hyperpl, Prostate Problems, Renal Failure Musculoskeletal: Arthritis HEENT: Cataract Loss of Vision: Left Hearing Impairment: Bilateral Hearing Aide Reviewed History: Yes Social History Home: Single Level Current Living Status: Spouse Entry Into Home: Stairs With Railing PT Steps Into Home: 3 Prior Prior Level of Function SCALE: Activities may be completed with or without assistive devices. 4-Aysjwnnjlj-pvitpvr completes the activity by him/herself with no assistance from a helper. 5-Set-up or Clean-up Assistance-helper sets up or cleans up; patient completes activity. [place] assists only prior to or following the activity. 4-Supervision or Touching Assistance-helper provides verbal cues and/or touching/steadying and/or contact guard assistance as patient completes activity. Assistance may be provided throughout the activity or intermittently. 3-Partial/Moderate Assistance-helper does LESS THAN HALF the effort. [place] lifts, holds or supports trunk or limbs, but provides less than half the effort. 2-Substantial/Maximal Assistance-helper does MORE THAN HALF the effort. [place] lifts or holds trunk or limbs and provides more than half the effort. 9-Dnkfxhmga-rdebah does ALL the effort. Patient does none of the effort to complete the activity. Or, the assistance of 2 or more helpers is required for the patient to complete the activity. If activity was not attempted, code reason: 7-Patient Refused. 9-Not Applicable-not attempted and the patient did not perform the activity before the current illness, exacerbation or injury. 10-Not Attempted due to Environmental Limitations-(lack of equipment, weather restraints, etc.). 88-Not Attempted due to Medical Conditions or Safety Concerns. Bed Mobility: 6 Transfers (B,C,W/C): 6 Gait: 6 Stairs: 6 Indoor Mobility (Ambulation): Independent Stairs: Independent PT Evaluation-Current Subjective Patient in bed pre tx, agrees to PT, has no complaints of pain at rest. Pt/Family Goals to be independent at home Objective Patient Orientation: Person, Place, Situation Attachments: Oxygen, Restrepo Catheter, IV Sensory Hearing: Functional Sensation Right Lower Extremit: Intact Sensation Left Lower Extremity: Intact Transfers Roll Left to Right (QC): 2 Lying to Sitting/Side of Bed(Q: 2 Sit to Stand (QC): 3 Chair/Rtr-qc-Zcgcf Xfer(QC): 4 Patient performs bed mobility and supine <-> sit with max assist, min assist for sit to stand and CGA for transfers. Patient is able to bear weight through his left leg, with pain, but he is able to tolerate it. Gait Does the Patient Walk?: Yes Mode of Locomotion: Walk Anticipated Mode of Locomotion: Walk Distance: 5' Gait Assistive Device: FWW Comments/Gait Description Patient ambulated 5' with a rolling walker with CGA. Ambulation is slow, antalgic, steps inches at a time but is able to do it, no foot clearance on the left or right side, tends to scoot feet across the floor. Balance Sitting Static: Fair Sitting Dynamic: Fair Standing Static: Fair Standing Dynamic: Fair Treatment LLE seated exercises x20 (AP, LAQ) Assessment/Needs Patient has impaired mobility, strength, endurance, ROM. Patient in recliner post tx with nurse call, phone, tray, in room, all needs met. Patient was able to ambulate but he needs max assist for bed mobility and supine <-> sit. Rehab Potential: Fair PT Chcf Goals Machine I Coremaker Goals PT Machine I Coremaker Goals Time Frame: Sep 27, 2019 Roll Left & Right (QC): 3 Sit to Lying (QC): 3 Lying-Sitting on Side/Bed(QC): 3 Sit to Stand (QC): 4 Chair/Mfe-ca-Gweqp Xfer(QC): 4 Toilet Transfer (QC): 4 Walk 10 feet (QC): 4 Walk 50ft with 2 Turns (QC): 4 PT Plan Problem List Problem List: Activity Tolerance, Functional Strength, Safety, Balance, Gait, Transfer, Bed Mobility, ROM Treatment/Plan Treatment Plan: Continue Plan of Care Treatment Plan: Bed Mobility, Education, Functional Activity Luis Felipe, Functional Strength, Gait, Safety, Therapeutic Exercise, Transfers Treatment Duration: Sep 27, 2019 Frequency: 11 times per week Estimated Hrs Per Day: .25 hour per day Patient and/or Family Agrees t: Yes Safety Risks/Education Patient Education: Gait Training, Transfer Techniques, Reviewed Precautions, Correct Positioning, Safety Issues Teaching Recipient: Patient Teaching Methods: Demonstration, Discussion Response to Teaching: Reinforcement Needed Discharge Recommendations Plan Patient will perform bed mobility and transfer training, balance and endurance training, functional strengthening, stair training, gait training, and education, to improve functional mobility and independence at home. Therapy Discharge Recommendati: Home & Family Time/GCodes Time In: 0943 Time Out: 1000 Total Billed Treatment Time: 17 Total Billed Treatment 1 visit NICHOLE Meier' FIDE GONZALEZ PT Sep 20, 2019 11:44
[2019-09-20 12:00] VITALS: BP 168/74
[2019-09-20] MEDS ORDERED: ceFAZolin 2 GM IV Premixed 50 ML IV SCH (12:00)
[2019-09-20] MEDS: LACTOBACILLUS ACIDOPHILUS (PROBIOTIC) CAPSULE PO SCH ×2 (13:53→17:19)
--- NOTE | 2019-09-20 14:23 | Progress Note - Urology ---
Progress Note-Urology Progress Notes/Assess & Plan Progress/Assessment & Plan CT SCAN REVIEWED. PLAN CYSTOSCOPY TOMORROW AT BEDSIDE IF URINE CLEARS. FULLY EXPLAINED TO PATIENT AND . MATY THAN. PSA TODAY Final Diagnosis URINE RETENTION AND GROSS HEMATURIA WITH UTI JEFF STREETER MD Sep 20, 2019 14:23
--- NOTE | 2019-09-20 15:18 | Physical Therapy Daily Note ---
PT Daily Note-Current Subjective Patient in bed pre tx, agrees to PT but would like to just perform exercises in bed, he says he just got back to bed and ambulated a little from the recliner to the bed. Patient doesn't want to ambulate again at this time. Patient has pain of 8/10 in left hip. Appearance Patient in bed post tx with nurse call, phone, tray, laying on right side for pressure relief, in room. Mental Status Patient Orientation: Person, Place, Situation Attachments: Restrepo Catheter, IV Transfers SCALE: Activities may be completed with or without assistive devices. 5-Zcxavssgfd-lbbcmrs completes the activity by him/herself with no assistance from a helper. 5-Set-up or Clean-up Assistance-helper sets up or cleans up; patient completes activity. [place] assists only prior to or following the activity. 4-Supervision or Touching Assistance-helper provides verbal cues and/or touching/steadying and/or contact guard assistance as patient completes activity. Assistance may be provided throughout the activity or intermittently. 3-Partial/Moderate Assistance-helper does LESS THAN HALF the effort. [place] lifts, holds or supports trunk or limbs, but provides less than half the effort. 2-Substantial/Maximal Assistance-helper does MORE THAN HALF the effort. [place] lifts or holds trunk or limbs and provides more than half the effort. 7-[place]ii[place]ow-acaekq does ALL the effort. Patient does none of the effort to complete the activity. Or, the assistance of 2 or more helpers is required for the patient to complete the activity. If activity was not attempted, code reason: 7-Patient Refused. 9-Not Applicable-not attempted and the patient did not perform the activity before the current illness, exacerbation or injury. 10-Not Attempted due to Environmental Limitations-(lack of equipment, weather restraints, etc.). 88-Not Attempted due to Medical Conditions or Safety Concerns. Weight Bearing Right Lower Extremity: Right Full Weight Bearing Left Lower Extremity: Left Weight Bearing/Tolerated hip precautions Exercises Supine Ex: Ankle pumps, Quad Set, Glut sets, Heel Slides (AAROM), Short Arc Quads, Straight leg raise (AAROM), Hip abd/add (AAROM) Supine Reps: 10 Treatments right side hip protocol Assessment Current Status: Fair Progress more pain this afternoon PT Java Integration Developer Goals Jail Goals PT Java Integration Developer Goals Time Frame: Sep 27, 2019 Roll Left & Right (QC): 3 Sit to Lying (QC): 3 Lying-Sitting on Side/Bed(QC): 3 Sit to Stand (QC): 4 Chair/Kth-zs-Fdrvf Xfer(QC): 4 Toilet Transfer (QC): 4 Walk 10 feet (QC): 4 Walk 50ft with 2 Turns (QC): 4 PT Plan Problem List Problem List: Activity Tolerance, Functional Strength, Safety, Balance, Gait, Transfer, Bed Mobility, ROM Treatment/Plan Treatment Plan: Continue Plan of Care Treatment Plan: Bed Mobility, Education, Functional Activity Luis Felipe, Functional Strength, Gait, Safety, Therapeutic Exercise, Transfers Treatment Duration: Sep 27, 2019 Frequency: 11 times per week Estimated Hrs Per Day: .25 hour per day Patient and/or Family Agrees t: Yes Safety Risks/Education Patient Education: Correct Positioning, Safety Issues Teaching Recipient: Patient Teaching Methods: Demonstration, Discussion Response to Teaching: Reinforcement Needed Time/GCodes Time In: 1449 Time Out: 1500 Total Billed Treatment Time: 11 Total Billed Treatment 1 visit EX 11 FIDE GONZALEZ PT Sep 20, 2019 15:18
[2019-09-20] MEDS: HYDROcodone/APAP 5 MG/325 MG (LORTAB) TAB PO PRN (15:32)
--- NOTE | 2019-09-20 15:53 | Occupational Therapy Eval ---
OT Evaluation-General/PLF Medical Diagnosis Admission Date Sep 19, 2019 at 07:32 Medical Diagnosis: left FERNANDO Onset Date: Sep 19, 2019 Therapy Diagnosis Therapy Diagnosis: Weakness, decreased ADL skills Height/Weight Height (Feet): 6 Height (Inches): 1.00 Weight (Pounds): 212 Weight (Ounces): 0.0 Precautions Precautions/Isolations: Fall Prevention, Standard Precautions Weight Bear Status Weight Bearing Restriction: Weight Bearing/Tolerated Hip precautions Referral Physician: Sony Referral Reason: Activity Tolerance, Self Care, Evaluation/Treatment, Strengthening/ROM Medical History Pertinent Medical History: CVA, HTN Additional Medical History Chronic edema in bilateral LE, 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 fell at home sustaining hip fx. Pt. had cemented bipolar hemiarthroplasty Reviewed History: Yes Social History Home: Single Level Current Living Status: Spouse Entry Into Home: Stairs With Railing Steps Into Home: 3 ADL-Prior Level of Function SCALE: Activities may be completed with or without assistive devices. 5-Bzsdauspgc-hbwuram completes the activity by him/herself with no assistance from a helper. 5-Set-up or Clean-up Assistance-helper sets up or cleans up; patient completes activity. [place] assists only prior to or following the activity. 4-Supervision or Touching Assistance-helper provides verbal cues and/or touching/steadying and/or contact guard assistance as patient completes activity. Assistance may be provided throughout the activity or intermittently. 3-Partial/Moderate Assistance-helper does LESS THAN HALF the effort. [place] lifts, holds or supports trunk or limbs, but provides less than half the effort. 2-Substantial/Maximal Assistance-helper does MORE THAN HALF the effort. [place] lifts or holds trunk or limbs and provides more than half the effort. 4-Rsobtrnkp-klscky does ALL the effort. Patient does none of the effort to complete the activity. Or, the assistance of 2 or more helpers is required for the patient to complete the activity. If activity was not attempted, code reason: 7-Patient Refused. 9-Not Applicable-not attempted and the patient did not perform the activity before the current illness, exacerbation or injury. 10-Not Attempted due to Environmental Limitations-(lack of equipment, weather restraints, etc.). 88-Not Attempted due to Medical Conditions or Safety Concerns. ADL PLOF Comments Pt. and spouse report that pt. was independent with all ADLs except for donning his compression socks. He has worn these for several years, and his spouse dons them for him. Self Care: Needed Some Help Functional Cognition: Unknown DME/Equipment: Shower DME/Equipment Comments Pt. states that he has a walker but does not use it. He does not have a shower chair. OT Current Status Subjective Pt. does not report pain level. Appearance Pt. up in chair. Spouse present. Mental Status/Objective Patient Orientation: Unable to Assess Attachments: Restrepo Catheter, Oxygen Current Glasses/Contacts: Yes Hand Dominance: Right Upper Extremity ROM Pt. is able to flex bilateral shoulders to functional level. Upper Extremity Coordination Left- slightly impaired due to CVA ADL-Treatment Lower Body Dressing (QC): 2 (Secondary to hip precautions.) On/Off Footwear (QC): 1 Toileting Hygiene (QC): 1 Other Treatments Pt. up in chair. Spouse present. It is noted that with questioning, pt. has some difficulty staying on topic and often has to be re-directed. He is slightly confused and states, "how did this get here" in regards to his catheter. Spouse is able to give information that pt. is unable to. Pt. and spouse are educated about his hip precautions. Pt. agrees to stand from chair. Requires increased time and multiple cues to facilitate pt. being in position to stand. Pt. requires max x 2 for sit-stand. Pt. stays in half stance posture, but states that he is unable to let go of chair to hold onto walker. Pt. talked through process and arms are gently placed onto walker. Max x 2 for further up right stance. Once pt. in standing posture, he does better and only requires mod assist. Pt. is able to stand approximately 4 minutes. Attempts to begin sitting, but is unable to sequence steps to properly sit back down. Pt. "plops" into chair. All needs are met for pt. and spouse. Education OT Patient Education: Modified ADL techniques, Progress toward Goal/Update tx plan, Purpose of tx/functional activities, Reviewed precautions, Rehab process, Transfer techniques Teaching Recipient: Patient, Family Teaching Methods: Demonstration, Discussion Response to Teaching: Reinforcement Needed OT Short Term Goals Short Term Goals Time Frame: Sep 27, 2019 Eatin Oral hygiene: 4 Toileting hygiene: 3 Upper body dressin Lower body dressin Putting on/taking off footwear: 3 OT Long-Term Goals Long-Term Goals Time Frame: Oct 04, 2019 Eating (QC): 5 Oral Hygiene (QC): 4 Toileting Hygiene (QC): 4 Shower/Bathe Self (QC): 4 Upper Body Dressing (QC): 5 Lower Body Dressing (QC): 4 On/Off Footwear (QC): 4 (With AE) Additional Goals: 1-Demonstrate ADL Tasks, 2-Verbalize Understanding, 3- ImproveStrength/Luis Felipe 1=Demonstrate adherence to instructed precautions during ADL tasks. 2=Patient will verbalize/demonstrate understanding of assistive devices/modifications for ADL. 3=Patient will improve strength/tolerance for activity to enable patient to perform ADL's. OT Education/Plan Problem List/Assessment Assessment: Decreased Activ Tolerance, Decreased UE Strength, Dependent Transfers, Impaired Funct Balance, Impaired I ADL's, Impaired Self-Care Skills Discharge Recommendations Plan/Recommendations: Continue POC Therapy Discharge Recommendati: Post Acute OT Equpiment Recommendations-D/C: Bath Chair, Bedside Commode, Hip Kit Target Placement Pt. would benefit from inpt. rehab stay to gain strength and independence prior to functional return home. Treatment Plan/Plan of Care Treatment,Training & Education: Yes Patient would benefit from OT for education, treatment and training to promote i ndependence in ADL's, mobility, safety and/or upper extremity function for ADL's. Plan of Care: ADL Retraining, Functional Mobility, UE Funct Exercise/Act Treatment Duration: Oct 04, 2019 Frequency: 5 times per week Estimated Hrs Per Day: .5 hour per day Agreement: Yes Rehab Potential: Fair Time/GCodes Start Time: 10:50 Stop Time: 11:25 Total Time Billed (hr/min): 35 Billed Treatment Time 1, EVH x 15minutes, FA x 20minutes MEG HANNON OT Sep 20, 2019 15:53
[2019-09-20 15:59] VITALS: BP 130/181
--- NOTE | 2019-09-20 16:34 | NUR ---
this RN took over patient care at this time. patient alert and orientated. verbalizes no needs at this time. family member at bedside Addendum: 09/20/19 at 1637 by MAR MCHUGH RN wrong patient documentation
[2019-09-20] MEDS: TAMSULOSIN 0.4 MG (FLOMAX) CAP PO SCH (17:19)
[2019-09-20 19:42] VITALS: BP 138/63
[2019-09-21] VITALS: BP 160/70
[2019-09-21] MEDS: PIPERACILLIN/TAZOBACTAM (BULK) 4.5 GM in NS (IVPB) 100 ML IV SCH ×3 (00:32→16:11)
[2019-09-21] MEDS: D5 1/2 NS 1000 ML IV SOLUTION 1,000 ML IV SCH ×3 (02:15→22:24)
[2019-09-21 03:45] VITALS: BP 153/73
[2019-09-21 06:07] LABS: HEMOGLOBIN 12.1 G/DL (13.3-17.7); MEAN PLATELET VOLUME 10.7 FL (7.4-10.4); RED CELL DISTRIBUTION WIDTH 13.3 % (10.0-14.5); WHITE BLOOD COUNT 16.8 10^3/uL (4.3-11.0)
[2019-09-21 06:22] LABS: CALCIUM 9.3 MG/DL (8.5-10.1); CREATININE SERUM 1.21 MG/DL (0.60-1.30)
--- NOTE | 2019-09-21 07:40 | Progress Note ---
Subjective Subjective Date Seen by Provider: Sep 21, 2019 Time Seen by Provider: 07:00 Pt alert and oriented. He reports some aching pain in his left hip area. He states he was able to use the walker yesterday with 2 people helping him and get around the room a little. he states he has trouble putting any weight on his left leg. He has not had a BM yet, but states he has been eating and has a normal appetite. He otherwise has no complaints. Review of Systems General: No Chills, No Fatigue HEENT: No Head Aches, No Visual Changes, No Dysphasia, No Sinus Congestion, No Sore Throat Pulmonary: No Dyspnea, No Cough Cardiovascular: No: Chest Pain, Palpitations Gastrointestinal: No: Nausea, Vomiting, Abdominal Pain, Diarrhea, Constipation Genitourinary: No Dysuria, No Hematuria, No Retention Musculoskeletal: leg pain (Aching left hip pain) Neurological: No: Weakness, Numbness Objective Exam Vital Signs Vital Signs - First Documented 09/19/19 09/20/19 05:40 20:48 Temp 36.9 Pulse 60 Resp 16 B/P (MAP) 152/85 (107) Pulse Ox 95 O2 Delivery Room Air FiO2 92 Capillary Refill : Less Than 3 SecondsLess Than 3 Seconds General Appearance: No Apparent Distress, WD/WN HEENT: PERRL/EOMI, Moist Mucous Membranes Neck: Full Range of Motion, Normal Inspection Respiratory: Chest Non Tender, Lungs Clear, Normal Breath Sounds, No Accessory Muscle Use, No Respiratory Distress Cardiovascular: Regular Rate, Rhythm; No No Edema (bilateral pedal ); Normal Peripheral Pulses Gastrointestinal: Normal Bowel Sounds, Non Tender, Soft Rectal: Deferred Extremity: Normal Inspection, No Calf Tenderness, Pedal Edema (Increased bilaterally) Neurologic/Psychiatric: Alert, Oriented x3, Normal Mood/Affect Skin: Normal Color, Warm/Dry Results Lab Laboratory Tests 09/21/19 05:15: White Blood Count 16.8H, Red Blood Count 3.86L, Hemoglobin 12.1L, Hematocrit 36L , Mean Corpuscular Volume 93, Mean Corpuscular Hemoglobin 31, Mean Corpuscular Hemoglobin Concent 34, Red Cell Distribution Width 13.3, Platelet Count 197, Mean Platelet Volume 10.7H, Sodium Level 140, Potassium Level 3.0L, Chloride Level 105, Carbon Dioxide Level 26, Anion Gap 9, Blood Urea Nitrogen 29H, Creatinine 1.21, Estimat Glomerular Filtration Rate 57, BUN/Creatinine Ratio 24, Glucose Level 111H, Calcium Level 9.3 Microbiology 09/19/19 MRSA Screen - Final, Complete MRSA not isolated 09/19/19 Urine Culture - Final, Complete Streptococcus mitis group Assessment/Plan Assessment/Plan Assessment and Plan LEFT HIP FRACTURE PYURIA HEMATURIA ABDOMINAL PAIN HYPERTENSION HX PROSTATE HYPERTROPHY PLAN: LEFT HIP FRACTURE -DR ABDULLAHI CONSULTED, PERFORMED CEMENTED BIPOLAR HEMIARTHROPLASTY LEFT HIP 09/18 -CONTINUE PAIN MANAGEMENT -CONTINUE OT/PT, INPATIENT REHAB UNIT EVALUATION -MONITOR HYPERTENSION -RESTART HOME MEDICATIONS -MONITOR PYURIA -CONTINUE ZOSYN, CEFAZOLIN -IV FLUIDS -WBC IMPROVING -MONITOR ABDOMINAL PAIN -IMPROVED -MONITOR URINE OUTPUT HEMATURIA -CHRONIC ISSUE RELATED TO PROSTATIC HYPERTROPHY -CONSULTED DR STREETER UROLOGY -PLAN TO PERFORM CYSTOSCOPY TODAY WITH POSSIBLE BIOPSY OF BLADDER -IMPROVING COLOR OF URINE -CT ABDOMEN PERFORMED 09/18 FINDINGS: There is massive heterogeneous nodular prostatomegaly, increased from the comparison study of 2016. In axial dimensions, the prostate measures 10 cm transverse x 12 cm AP and approximately 9.5 cm cephalocaudal. Diverticulation at the urinary bladder fundal portion is a chronic finding, however severe nodular new circumferential bladder wall thickening has occurred with the bladder wall averaging thickness of 2.5 cm. There is edema of the pelvic perivesical fat as well as some perivesical pelvic lymphadenopathy is a new finding. Largest node in the distal right external iliac chain is 2.2 cm, node adjacent to the 2 o'clock position of the lower thickened urinary bladder measured 1.8 cm, and 1.5 cm left-sided perivesical nodes present. While the findings may all reflect severe cystitis and reactive regional lymphadenopathy, neoplasm of prostatic and/or bladder origin could not be excluded. The urinary bladder is catheterized, likely accounting for its intraluminal gas. There is posterior angulation of fracture at the subcapital femoral neck. No dislocation. No other acute bony abnormality. There are renal cortical cysts bilaterally without hydroureteronephrosis. No solid or enhancing renal mass. The adrenals are negative. There are few gallstones present with no evidence for acute cholecystitis. There are cysts in the left and right hepatic lobes. There is a small hiatal hernia. The spleen is negative. Pancreas is unremarkable. The atherosclerotic aorta shows some mild ectasia at its infrarenal segment without rupture dilating to maximal diameter of 2.7 cm. I cannot identify the appendix but there is no pericecal inflammation or evidence for acute appendicitis. There were no findings of diverticulitis. IMPRESSION: 1. Progressive massive prostatomegaly. New severe nodular circumferential irregular thickening of the urinary bladder wall, perivesical edema, and pelvic lymphadenopathy. The findings could reflect reactive vicky disease and severe cystitis, however neoplasm of prostatic and/or bladder origin could not be excluded with regional vicky metastases. 2. Posterior angulation of displaced subcapital femoral neck fracture. There are lucencies along the fracture margin. A pathological fracture could not be absolutely excluded, correlate clinically. No other acute or suspect bony findings. 3. Cystic kidneys without hydronephrosis. 4. Cholelithiasis without evidence for acute cholecystitis. Benign hepatic cysts noted, chronic. 5. 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 Clinical Quality Measures DVT/VTE Risk/Contraindication: Risk Factor Score Per Nursin RFS Level Per Nursing on Admit: 4+=Very High Supervisory-Addendum Brief Verification & Attestation Participated in pt care: history, MDM, physical Personally performed: exam, history, MDM, supervision of care Care discussed with: Medical Student Procedures: n/a Results interpretation: Verified all documentation LEFT HIP FRACTURE HEMATURIA PYURIA ABDOMINAL PAIN HYPERTENSION CHRONIC PROSTATIC ENLARGEMENT (10CM) HX RENAL FAILURE LEFT HIP FRACTURE - DEFER TO ORTHO - S/P SURGICAL FIXATION - MONITOR SYMPTOMS - DISCUSSED WITH PHYSICAL THERAPY - PT QUALIFIES FOR INPT REHAB - WILL PLAN ON POSSIBLE DC TO INPT REHAB ON WEDNESDAY. HEMATURIA WITH PYURIA - CONSULT TO DR. STREETER - PLANNING ON CYSTOSCOPE TODAY - TREATMENT WITH IV ANTIBIOTICS -STARTED ON ZOSYN DUE TO ABDOMINAL PAIN - WAITING ON CULTURE REPORT - BROAD SPECT COVERAGE. ABDOMINAL PAIN - CT SCAN SHOWED NODULAR BLADDER - DISCUSSED WITH PT AND DR. STREETER - SCOPE TODAY HYPERTENSION - WAIT ON MEDICATION RECONCILIATION CHRONIC PROSTATIC ENLARGEMENT (10CM) - DEFER TO DR. STREETER. HX RENAL FAILURE - STABLE YUNIEL KNUTSON [facility] Sep 21, 2019 07:40 LORAINE MCCONNELL MD Sep 21, 2019 09:40
[2019-09-21 08:00] VITALS: BP 158/71
[2019-09-21] MEDS: LACTOBACILLUS ACIDOPHILUS (PROBIOTIC) CAPSULE PO SCH ×3 (08:08→17:55)
[2019-09-21] MEDS: ENOXAPARIN 40 MG/0.4 ML (LOVENOX) SYR SC SCH (08:08)
[2019-09-21] MEDS: FINASTERIDE (PROSCAR) 5 MG TAB PO SCH (08:08)
--- NOTE | 2019-09-21 09:21 | Progress Note - Ortho ---
Progress Note Subjective Date of Exam 09/21/19 Chief Complaint POD#2 cemented bipolar hemiarthroplasty left hip HPI/Events since last exam Mr. Espinoza is 2 days postop. He was able to get up yesterday and ambulate with a walker without too much problem. He did need assistance as well. He has no complaints of the hip. Review of Systems Reviewed and no additions or changes Allergies: Coded Allergies: No Known Drug Allergies (Unverified , 09/24/11) Home Meds Reported Medications Potassium Chloride (Klor-Con M20) 20 Meq Tab.er.prt, 40 MEQ PO BID TAKES 2 TABLETS BID 09/20/19 Hydralazine HCl (Hydralazine HCl) 10 Mg Tablet, 20 MG PO TID, TAB TAKES 2 TABLETS TID 09/20/19 Tamsulosin HCl (Flomax) 0.4 Mg Cap, 0.4 MG PO DAILY, CAP 09/20/19 Atorvastatin Calcium (Atorvastatin Calcium) 40 Mg Tablet, 40 MG PO HS, TAB 09/20/19 Amlodipine Besylate (Amlodipine Besylate) 10 Mg Tablet, 10 MG PO DAILY, TAB 09/20/19 Finasteride (Finasteride) 5 Mg Tablet, 5 MG PO DAILY, TAB 09/20/19 Discontinued Reported Medications Cranberry Conc/Ascorbic Acid (Cranberry 12,600 mg Softgel) 1 Each Capsule, 1 EACH PO DAILY, CAP 01/31/15 Multivitamin (Multi-Day Vitamins) 1 Each Tablet, 1 EACH PO DAILY, TAB 01/31/15 Atorvastatin Calcium (Atorvastatin Calcium) 10 Mg Tablet, 10 MG PO DAILY, TAB 01/31/15 Furosemide (Lasix) 80 Mg Tablet, 80 MG PO EVERY OTHER DAY, TAB 01/31/15 Senna (Senokot S) 1 Ea Tablet, 1 EA PO BID PRN 10/20/12 Amlodipine Besylate (NORVASC TABLET) 10 Mg Tablet, 10 MG PO DAILY 10/20/12 Hydralazine Hcl (Apresoline) 10 Mg Tablet, 20 MG PO TID TAKE 2 (10MG) TABS 10/07/12 Tamsulosin Hcl (Flomax) 0.4 Mg Cap, 0.4 MG PO DAILY 05/24/12 Finasteride (Finasteride) 5 Mg Tablet, 5 MG PO DAILY 05/21/12 Discontinued Scripts Ondansetron (Zofran Odt) 4 Mg Tab.rapdis, 4 MG SL Q4H PRN for NAUSEA/VOMITING- 1ST LINE, #10 TAB Prov:YOLANDA CESPEDES MD 05/14/17 Cefdinir (Cefdinir) 300 Mg Capsule, 300 MG PO BID, #14 CAP Prov:YOLANDA CESPEDES MD 05/14/17 Doxycycline Hyclate (Doxycycline Hyclate) 100 Mg Tablet, 100 MG PO BID, #20 TAB Prov:YOLANDA CESPEDES MD 05/14/17 Objective Exam Constitutional: [] HEENT: [] Neck: [] Cardiovascular: [] Respiratory: [] Gastrointestinal: [] Genitourinary: [] Skin: [] Back/Spine: [] Extremities: [] Dressing is intact. I did peel back the dressing and the incision looks good without redness or drainage. No calf tenderness and negative Homans. Normal sensation to the foot and ankle. He is able to dorsiflex and plantarflex the foot and ankle without weakness. Still significan t edema in the lower extremities Neurologic: [] Psychiatric: [] Hematologic/lymphatic/immunologic: [] Vital Signs Vital Signs Date Time Temp Pulse Resp B/P (MAP) Pulse Ox O2 Delivery O2 Flow Rate FiO2 09/21/19 08:00 36.2 63 16 158/71 (100) 93 Nasal Cannula 3.00 09/21/19 03:45 36.8 66 20 153/73 (99) 94 Nasal Cannula 3.00 09/21/19 00:00 36.9 70 16 160/70 (100) 92 Nasal Cannula 3.00 09/20/19 20:48 Nasal Cannula 3.00 92 09/20/19 20:10 Nasal Cannula 09/20/19 19:42 36.6 70 15 138/63 (88) 95 Nasal Cannula 3.00 09/20/19 16:28 Nasal Cannula 3.00 09/20/19 15:59 36.8 64 18 130/181 (164) 91 Nasal Cannula 3.00 09/20/19 12:00 35.9 61 16 168/74 (105) 90 Nasal Cannula 3.00 I & O 09/21/19 07:00 Intake Total 1930 ml Output Total 2475 ml Balance -545 ml Lab Results Laboratory Tests 7/30/20 05:15: White Blood Count 16.8H, Red Blood Count 3.86L, Hemoglobin 12.1L, Hematocrit 36L , Mean Corpuscular Volume 93, Mean Corpuscular Hemoglobin 31, Mean Corpuscular Hemoglobin Concent 34, Red Cell Distribution Width 13.3, Platelet Count 197, Mean Platelet Volume 10.7H, Sodium Level 140, Potassium Level 3.0L, Chloride Level 105, Carbon Dioxide Level 26, Anion Gap 9, Blood Urea Nitrogen 29H, Creatinine 1.21, Estimat Glomerular Filtration Rate 57, BUN/Creatinine Ratio 24, Glucose Level 111H, Calcium Level 9.3 Microbiology 09/19/19 MRSA Screen - Final, Complete MRSA not isolated 09/19/19 Urine Culture - Final, Complete Streptococcus mitis group Assessment and Plan Assessment Doing well postop day number 2 Problem List Unchanged Plan Continue with therapy. Okay to transfer to rehabilitation from orthopedic point of view. Plan is for transfer tomorrow if everything goes well Final Diagonsis Status post cemented bipolar hemiarthroplasty left hip for a displaced subcapital fracture Level of the visit: Level 3 Clinical Quality Measures DVT/VTE Risk/Contraindication: Risk Factor Score Per Nursin RFS Level Per Nursing on Admit: 4+=Very High MIKE BADULLAHI MD Sep 21, 2019 09:21
[2019-09-21] MEDS: amLODIPine 10 MG (NORVASC) TAB PO SCH (09:52)
--- NOTE | 2019-09-21 09:59 | Progress Note-Pre Operative ---
Pre-Operative Progress Note H&P Reviewed The H&P was reviewed, patient examined and no changes noted. Date Seen by Provider: Sep 21, 2019 Time Seen by Provider: :59 Date H&P Reviewed: Sep 21, 2019 Time H&P Reviewed: 09:59 Pre-Operative Diagnosis: GROSS HEMATURIA JEFF STREETER MD Sep 21, 2019 09:59
--- NOTE | 2019-09-21 10:00 | Progress Note-Post Operative ---
Post-Operative Progess Note Surgeon (s)/Manager Food (s) Surgeon JEFF STREETER MD Manager Food: NONE Pre-Operative Diagnosis GROSS HEMATURIA Post-Operative Diagnosis SAME Procedure & Operative Findings Date of Procedure 09/21/19 Procedure Performed/Findings CYSTOSCOPY Anesthesia Type LOCAL Estimated Blood Loss Estimated blood loss (mL): NONE Specimens/Packing Specimens Removed NONE Packing: NONE JEFF STREETER MD Sep 21, 2019 10:00
--- NOTE | 2019-09-21 10:15 | Occ Therapy Progress Note ---
Therapy Progress Note OT attempted treatment this a.m. OT brought in AE to begin practicing LE dressing due to hip precautions. Pt. in bed and spouse at bedside. Spouse reports that pt. is going to have procedure, and that his urine in catheter is supposed to stay "clean." She does not want him to move and for blood to get into urine. She requests OT to attempt back later. OT left equipment and will come back in p.m. 1, visit 0910 MEG HANNON OT Sep 21, 2019 10:15
[2019-09-21] MEDS ORDERED: LIDOCAINE UROJET 2% GEL 10 ML PKG ONE (10:19)
--- NOTE | 2019-09-21 11:44 | Physical Therapy Progress Note ---
Therapy Progress Note PT treatment attempted. Patient's states he is waiting to have a procedure done and his catheter needs to be clear, sediment and blood tend to get into catheter with activity and she doesn't want him to participate in therapy this morning. Will attempt again this afternoon. FIDE GONZALEZ PT Sep 21, 2019 11:44
[2019-09-21 12:00] VITALS: BP 149/73
[2019-09-21] MEDS: KCL 20 MEQ TAB (K-DUR) PO SCH ×2 (12:14→17:55)
[2019-09-21] MEDS: HYDROcodone/APAP 5 MG/325 MG (LORTAB) TAB PO PRN ×2 (12:18→18:24)
--- NOTE | 2019-09-21 12:23 | NUR ---
IRF Evaluation Determination: Accepted Chart review complete and it does appear patient would benefit from intensive rehabilitation program. Patient to undergo beside cystoscopy, today. Awaiting further instruction from Dr. Allan as it relates to anticipate admission date. Will continue to follow. Thank you for this referral. Addendum: 09/21/19 at 1601 by MAY R SHERI SS Met with patient and spouse to discuss details specific to rehabilitation program. Patient reports he is familiar with program as he was on the unit in 2012 for a CVA. Patient agreeable to therapy regimen and admission. Patient's spouse states Dr. Allan indicated patient will likely admit to rehab tomorrow, 09/22/19. Will continue to follow.
--- NOTE | 2019-09-21 13:05 | Physical Therapy Progress Note ---
Therapy Progress Note states patient had his procedure done. Patient is eating lunch currently and refuses therapy, refuses to get out of bed and into chair to be in a better position to eat. Will try back later. FIDE GONZALEZ PT Sep 21, 2019 13:05
--- NOTE | 2019-09-21 14:10 | Occ Therapy Progress Note ---
Therapy Progress Note OT has attempted treatment x 2 this date. Pt. in bed, with HOB elevated, and is eating lunch. Pt. states that he would like to finish, but is eating slow because he has an IV in right hand. Spouse reports that she would like him to be able to finish lunch. Pt. and spouse are educated that pt. is to transfer to air bed, to assist with pressure relief. However, pt. not ready to transfer at this time. This is reported to PT. 1, 1, visit 1310, 1337 MEG HANNON OT Sep 21, 2019 14:10
--- NOTE | 2019-09-21 14:35 | Physical Therapy Daily Note ---
PT Daily Note-Current Subjective Patient agrees to PT. Pain Numeric Pain Scale: 8 Location: Left Location Body Site: Hip Pain Description: Acute Mental Status Patient Orientation: Normal For Age Attachments: Oxygen, IV Transfers SCALE: Activities may be completed with or without assistive devices. 3-Ihbqcldhuc-nhzmfhc completes the activity by him/herself with no assistance from a helper. 5-Set-up or Clean-up Assistance-helper sets up or cleans up; patient completes activity. [place] assists only prior to or following the activity. 4-Supervision or Touching Assistance-helper provides verbal cues and/or touching/steadying and/or contact guard assistance as patient completes activity. Assistance may be provided throughout the activity or intermittently. 3-Partial/Moderate Assistance-helper does LESS THAN HALF the effort. [place] lifts, holds or supports trunk or limbs, but provides less than half the effort. 2-Substantial/Maximal Assistance-helper does MORE THAN HALF the effort. [place] lifts or holds trunk or limbs and provides more than half the effort. 7-Hvdgsfjth-zfgioe does ALL the effort. Patient does none of the effort to complete the activity. Or, the assistance of 2 or more helpers is required for the patient to complete the activity. If activity was not attempted, code reason: 7-Patient Refused. 9-Not Applicable-not attempted and the patient did not perform the activity b efore the current illness, exacerbation or injury. 10-Not Attempted due to Environmental Limitations-(lack of equipment, weather restraints, etc.). 88-Not Attempted due to Medical Conditions or Safety Concerns. Roll Left & Right (QC): 2 Lying to Sitting/Side of Bed(Q: 2 Sit to Stand (QC): 2 Chair/Jgr-bh-Ypofw Xfer(QC): 2 Weight Bearing Right Lower Extremity: Right Full Weight Bearing Left Lower Extremity: Left Weight Bearing/Tolerated hip precautions Gait Training Does the Patient Walk?: Yes Distance: 30' Walk 10 feet (QC): 2 Gait Assistive Device: FWW NBOS/shuffle gait sequence Exercises Seated Therapy Exercises: Long arc quads Seated Reps: 12 Assessment Patient tolerated minimal activity on this date and is up in recliner with needs met. Patient fatigues with treatment. Spouse present. PT [facility] Goals Address Change Clerk Goals PT Address Change Clerk Goals Time Frame: Sep 27, 2019 Roll Left & Right (QC): 3 Sit to Lying (QC): 3 Lying-Sitting on Side/Bed(QC): 3 Sit to Stand (QC): 4 Chair/Mfq-ti-Ngujm Xfer(QC): 4 Toilet Transfer (QC): 4 Walk 10 feet (QC): 4 Walk 50ft with 2 Turns (QC): 4 PT Plan Treatment/Plan Treatment Plan: Continue Plan of Care Treatment Plan: Bed Mobility, Education, Functional Activity Luis Felipe, Functional Strength, Gait, Safety, Therapeutic Exercise, Transfers Treatment Duration: Sep 27, 2019 Frequency: 11 times per week Estimated Hrs Per Day: .25 hour per day Patient and/or Family Agrees t: Yes Time/GCodes Time In: 1405 Time Out: 1419 Total Billed Treatment Time: 14 Total Billed Treatment 1 visit GT 14 min CORINA CARLSON PT Sep 21, 2019 14:35
--- NOTE | 2019-09-21 15:16 | NUR ---
CM/SS visited with patient for discharge planning. Plan: The patient will discharge to inpatient rehab. The patient and his Krista were present in the room. They report that Dr. Allan told them he would be going to inpatient rehab with possible discharge tomorrow if everything looks good. The patient and his live at home alone. They do not have any services such as home health or homemaker. He was participating in outpatient physical therapy due to weakness and instability for the past two weeks. According to the patient's , he gets around the house with out a walker but does have one. CM/SS asked about accommodations to the home. She reports they do not have any shower bars, slip forestry patrolman, toilet seat riser, or commode. CM/SS informed them it could be helpful to start setting these things up for the future. No further needs at this time.
[2019-09-21 15:30] VITALS: BP 143/67
--- NOTE | 2019-09-21 15:38 | NUR ---
Pastoral care visit.
[2019-09-21] MEDS: TAMSULOSIN 0.4 MG (FLOMAX) CAP PO SCH (17:55)
[2019-09-21 20:00] VITALS: BP 164/90
[2019-09-22] MEDS: PIPERACILLIN/TAZOBACTAM (BULK) 4.5 GM in NS (IVPB) 100 ML IV SCH ×2 (00:33→09:17)
[2019-09-22 00:41] VITALS: BP 173/81
[2019-09-22 03:50] VITALS: BP 164/81
[2019-09-22 05:48] LABS: HEMOGLOBIN 12.1 G/DL (13.3-17.7); MEAN PLATELET VOLUME 10.6 FL (7.4-10.4); RED CELL DISTRIBUTION WIDTH 13.5 % (10.0-14.5); WHITE BLOOD COUNT 14.3 10^3/uL (4.3-11.0)
[2019-09-22 05:56] LABS: CHLORIDE 107 MMOL/L (98-107); POTASSIUM 2.9 MMOL/L (3.6-5.0); SODIUM 139 MMOL/L (135-145)
[2019-09-22 05:58] LABS: CALCIUM 9.4 MG/DL (8.5-10.1); GLUCOSE 151 MG/DL (70-105)
[2019-09-22 05:59] LABS: CARBON DIOXIDE 23 MMOL/L (21-32)
[2019-09-22 06:02] LABS: CREATININE SERUM 0.93 MG/DL (0.60-1.30); GFR ESTIMATED > 60
[2019-09-22 06:03] LABS: BUN/CREATININE RATIO 24
[2019-09-22 08:00] VITALS: BP 138/62
--- NOTE | 2019-09-22 08:05 | CONSULTATION REPORT ---
DATE OF SERVICE: 09/19/2019 ATTENDING PHYSICIAN: Dr. Allan. SUMMARY: An 84-year-old white man I have seen about 12 years ago for an enlarged prostate and put him on finasteride 5 mg daily and Flomax 0.4 mg daily. He was referred to me to be seen sometime this week because of the hematuria. However, he fell and was admitted from the emergency room today. The catheter was inserted downstairs with recovery of grossly blood, urine and now some purulent material. I have advised Dr. Allan to start him on antibiotics and to push fluids. His urine looks better now starting to clear up. He was going downstairs for a CT scan. IMPRESSION: Gross hematuria and UTI with enlargement of the prostate. PLAN: Continue Flomax and Proscar. Push fluids, IV antibiotics and a CT scan, later on a cystoscopy. Job ID: [id number] DocumentID: [id number] Dictated Date: 09/19/2019 11:29:23 Senior Data Integration Developer Date: 09/19/2019 11:49:45 Dictated By: JEFF STREETER MD
[2019-09-22] MEDS: LACTOBACILLUS ACIDOPHILUS (PROBIOTIC) CAPSULE PO SCH (09:16)
[2019-09-22] MEDS: FINASTERIDE (PROSCAR) 5 MG TAB PO SCH (09:16)
[2019-09-22] MEDS: ENOXAPARIN 40 MG/0.4 ML (LOVENOX) SYR SC SCH (09:17)
[2019-09-22] MEDS: amLODIPine 10 MG (NORVASC) TAB PO SCH (09:17)
[2019-09-22] MEDS: KCL 20 MEQ TAB (K-DUR) PO SCH (09:17)
[2019-09-22] MEDS: D5 1/2 NS 1000 ML IV SOLUTION 1,000 ML IV SCH (09:17)
--- NOTE | 2019-09-22 10:07 | Progress Note - Ortho ---
Progress Note Subjective Date of Exam 09/22/19 Chief Complaint POD#3 cemented bipolar hemiarthroplasty of the left hip HPI/Events since last exam Mr. Espinoza is 3 days postop. Other than a few twinges in his hip he states he is doing very well. He's been up ambulating with his walker without any problems. Review of Systems Reviewed and no additions or changes Allergies: Coded Allergies: No Known Drug Allergies (Unverified , 09/24/11) Home Meds Reported Medications Potassium Chloride (Klor-Con M20) 20 Meq Tab.er.prt, 40 MEQ PO BID TAKES 2 TABLETS BID 09/20/19 Hydralazine HCl (Hydralazine HCl) 10 Mg Tablet, 20 MG PO TID, TAB TAKES 2 TABLETS TID 09/20/19 Tamsulosin HCl (Flomax) 0.4 Mg Cap, 0.4 MG PO DAILY, CAP 09/20/19 Atorvastatin Calcium (Atorvastatin Calcium) 40 Mg Tablet, 40 MG PO HS, TAB 09/20/19 Amlodipine Besylate (Amlodipine Besylate) 10 Mg Tablet, 10 MG PO DAILY, TAB 09/20/19 Finasteride (Finasteride) 5 Mg Tablet, 5 MG PO DAILY, TAB 09/20/19 Discontinued Reported Medications Cranberry Conc/Ascorbic Acid (Cranberry 12,600 mg Softgel) 1 Each Capsule, 1 EACH PO DAILY, CAP 01/31/15 Multivitamin (Multi-Day Vitamins) 1 Each Tablet, 1 EACH PO DAILY, TAB 01/31/15 Atorvastatin Calcium (Atorvastatin Calcium) 10 Mg Tablet, 10 MG PO DAILY, TAB 01/31/15 Furosemide (Lasix) 80 Mg Tablet, 80 MG PO EVERY OTHER DAY, TAB 01/31/15 Senna (Senokot S) 1 Ea Tablet, 1 EA PO BID PRN 10/20/12 Amlodipine Besylate (NORVASC TABLET) 10 Mg Tablet, 10 MG PO DAILY 10/20/12 Hydralazine Hcl (Apresoline) 10 Mg Tablet, 20 MG PO TID TAKE 2 (10MG) TABS 10/07/12 Tamsulosin Hcl (Flomax) 0.4 Mg Cap, 0.4 MG PO DAILY 05/24/12 Finasteride (Finasteride) 5 Mg Tablet, 5 MG PO DAILY 05/21/12 Discontinued Scripts Ondansetron (Zofran Odt) 4 Mg Tab.rapdis, 4 MG SL Q4H PRN for NAUSEA/VOMITING- 1ST LINE, #10 TAB Prov:YOLANDA CESPEDES MD 05/14/17 Cefdinir (Cefdinir) 300 Mg Capsule, 300 MG PO BID, #14 CAP Prov:YOLANDA CESPEDES MD 05/14/17 Doxycycline Hyclate (Doxycycline Hyclate) 100 Mg Tablet, 100 MG PO BID, #20 TAB Prov:YOLANDA CESPEDES MD 05/14/17 Objective Exam Constitutional: [] HEENT: [] Neck: [] Cardiovascular: [] Respiratory: [] Gastrointestinal: [] Genitourinary: [] Skin: [] Back/Spine: [] Extremities: [His dressing is intact which was changed yesterday. No drainage noted. His stated the incision looked good yesterday when they changed it. Has a little bit a left calf tenderness but no swelling or redness. He has negative Homans. He can dorsiflex and plantarflex the left ankle without any weakness and he has normal sensation and good pulses. He still has significant edema in the left lower extremity.] Neurologic: [] Psychiatric: [] Hematologic/lymphatic/immunologic: [] Vital Signs Vital Signs Date Time Temp Pulse Resp B/P (MAP) Pulse Ox O2 Delivery O2 Flow Rate FiO2 09/22/19 08:00 36.4 73 20 138/62 (87) 92 Nasal Cannula 3.00 09/22/19 03:50 36.6 78 21 164/81 (108) 90 Nasal Cannula 3.00 09/22/19 00:41 36.6 79 22 173/81 (111) 92 Nasal Cannula 3.00 09/21/19 20:15 Nasal Cannula 3.00 09/21/19 20:00 36.8 85 18 164/90 (114) 92 Nasal Cannula 3.00 09/21/19 19:23 Nasal Cannula 3.00 92 09/21/19 16:02 Nasal Cannula 3.00 09/21/19 15:30 36.3 73 18 143/67 (92) 92 Nasal Cannula 2.50 09/21/19 12:00 37.2 68 18 149/73 (98) 90 Nasal Cannula 3.00 I & O 09/22/19 07:00 Intake Total 1930 ml Output Total 1325 ml Balance 605 ml Lab Results Laboratory Tests 09/22/19 05:22: White Blood Count 14.3H, Red Blood Count 3.87L, Hemoglobin 12.1L, Hematocrit 36L , Mean Corpuscular Volume 92, Mean Corpuscular Hemoglobin 31, Mean Corpuscular Hemoglobin Concent 34, Red Cell Distribution Width 13.5, Platelet Count 173, Mean Platelet Volume 10.6H, Sodium Level 139, Potassium Level 2.9L, Chloride Level 107, Carbon Dioxide Level 23, Anion Gap 9, Blood Urea Nitrogen 22H, Cre atinine 0.93, Estimat Glomerular Filtration Rate > 60, BUN/Creatinine Ratio 24, Glucose Level 151H, Calcium Level 9.4 Microbiology 09/19/19 MRSA Screen - Final, Complete MRSA not isolated 09/19/19 Urine Culture - Final, Complete Streptococcus mitis group Assessment and Plan Assessment Doing well third day postop Problem List Unchanged Plan Continue with physical therapy, walker ambulation weightbearing as tolerated on the left. His thought that they were going to transfer him to rehabilitation today. If so I will see them down in rehabilitation. His hemoglobin remained stable at 12.1 Final Diagonsis Status post cemented bipolar hemiarthroplasty left hip for a displaced subcapital fracture Level of the visit: Level 3 Clinical Quality Measures DVT/VTE Risk/Contraindication: Risk Factor Score Per Nursin RFS Level Per Nursing on Admit: 4+=Very High MIKE ABDULLAHI MD Sep 22, 2019 10:07
--- NOTE | 2019-09-22 10:26 | Discharge Summary ---
Diagnosis/Chief Complaint Date of Admission Sep 19, 2019 at 07:32 Date of Discharge Discharge Date: Sep 22, 2019 Discharge Time: 1025 Admission Diagnosis Admission Diagnosis LEFT HIP FRACTURE HEMATURIA PYURIA ABDOMINAL PAIN HYPERTENSION CHRONIC PROSTATIC ENLARGEMENT (10CM) HX RENAL FAILURE Discharge Diagnosis LEFT HIP FRACTURE HEMATURIA PYURIA ABDOMINAL PAIN HYPERTENSION CHRONIC PROSTATIC ENLARGEMENT (10CM) HX RENAL FAILURE NODULAR BLADDER Reason Hospital Visit PT IS AN 84 Y/O MALE WHO IS KNOWN TO ME FROM CLINIC. HE PRESENTED TO THE HOSPITAL WITH A FALL AT HOME WHEN HE WAS GETTING UP TO USE THE RESTROOM. HE STATES THAT HE THINKS IT BROKE THEN HE FELL, BUT HE IS UNSURE. HIS STATES THAT SHE HEARD HIM FALL AND RUSHED TO GET TO HIM, HAD TO CALL 911 AND HE WAS RUSHED TO THE HOSPITAL ER, FOUND TO HAVE LEFT HIP FRACTURE AND UTI. PT WAS ADMITTED TO THE HOSPITAL FOR FURTHER WORK-UP AND MANAGEMENT. Discharge Summary Procedures: LEFT HIP FRACTURE REPAIR CYSTOSCOPE Consultations ORTHOPEDICS - UROLOGY Discharge Physical Examination Allergies: Coded Allergies: No Known Drug Allergies (Unverified , 09/24/11) Vitals & I&Os Vital Signs Date Time Temp Pulse Resp B/P (MAP) Pulse Ox O2 Delivery O2 Flow Rate FiO2 09/22/19 10:19 Nasal Cannula 2.50 09/22/19 08:00 36.4 73 20 138/62 (87) 92 09/21/19 19:23 92 General Appearance: Alert, Oriented X3, Cooperative, No Acute Distress HEENT: Atraumatic, PERRLA, Mucous Memb Moist/[place] Respiratory: Clear to Auscultation, Normal Air Movement Cardiovascular: Regular Rate Abdominal: Normal Bowel Sounds, Soft, Other (TTP OVER BLADDER) Extremities: No Clubbing, No Cyanosis, Other (+ EDEMA BILATERAL LOWER EXTREMITIES 2+) Skin: No Breakdown Neuro: Cranial Nerves 3-12 NL Psych/Mental Status: Mental Status NL, Mood NL Hospital Course Was the Problem List Reviewed?: Yes LEFT HIP FRACTURE HEMATURIA PYURIA ABDOMINAL PAIN HYPERTENSION CHRONIC PROSTATIC ENLARGEMENT (10CM) HX RENAL FAILURE LEFT HIP FRACTURE - DEFER TO ORTHO - S/P SURGICAL FIXATION - MONITOR SYMPTOMS - DISCUSSED WITH PHYSICAL THERAPY - PT QUALIFIES FOR INPT REHAB -PT HAS BEEN ACCEPTED TO INPATIENT REHAB, AND WILL BE TRANSFERRED TODAY FOR FURTHER THERAPY. HEMATURIA WITH PYURIA - HEMATURIA RESOLVED - PYURIA RESOLVED - CONSULTED DR. STREETER - CYSTOSCOPE HAS BEEN PERFORMED, WILL WAIT ON PATHOLOGY REPORT FOR FURTHER DETAILS. - TREATMENT WITH IV ANTIBIOTICS -STARTED ON ZOSYN DUE TO ABDOMINAL PAIN - WAITING ON CULTURE REPORT - STREPTOCOCCUS MITIS - UNUSUAL ORGANISM FOR URINARY TRACT INFECTIONS - WILL CONTINUE WITH IV ROCEPHIN X 5 MORE DAYS. ABDOMINAL PAIN WITH BLADDER NODULARITY - CT SCAN SHOWED NODULAR BLADDER - DISCUSSED WITH PT AND DR. STREETER - PERFORMED CYSTOSCOPY HYPERTENSION - HOME MEDICATION REGIMEN RESTARTED, WILL NEED TO CONTINUE IN HOSPITAL ON INPT REHAB CHRONIC PROSTATIC ENLARGEMENT (10CM) - DEFER TO DR. STREETER. HX RENAL FAILURE - STABLE HYPOKALEMIA - HOME REGIMEN RESTARTED, HOWEVER WILL NEED A DOSE OF 40MEQ BID X 1 DAY THEN RESUME HOME REGIMEN Pending Labs Laboratory Tests 09/22/19 05:22: White Blood Count 14.3, Red Blood Count 3.87, Hemoglobin 12.1, Hematocrit 36, Mean Corpuscular Volume 92, Mean Corpuscular Hemoglobin 31, Mean Corpuscular Hemoglobin Concent 34, Red Cell Distribution Width 13.5, Platelet Count 173, Mean Platelet Volume 10.6, Sodium Level 139, Potassium Level 2.9, Chloride Level 107, Carbon Dioxide Level 23, Anion Gap 9, Blood Urea Nitrogen 22, Creatinine 0.93, Estimat Glomerular Filtration Rate > 60, BUN/Creatinine Ratio 24, Glucose Level 151, Calcium Level 9.4 Radiology Reviewed [facility]. [place], [place] NAME: NELDA REICH [facility] REC#: [id number] PT STATUS: ADM IN : 1935 PHYSICIAN: LORAINE MCCONNELL MD ADMIT DATE: 09/19/19 Signed Date of Exam:09/19/19 CT ABD/PELV W (APPENDICITIS) PROCEDURE: CT abdomen and pelvis with contrast, rule out appendicitis. TECHNIQUE: Multiple contiguous axial images were obtained through the abdomen and pelvis after the administration of intravenous contrast. All CT scans use one or more of the following dose optimizing techniques: automated exposure control, MA and/or KvP adjustment based on patient size and exam type or iterative reconstruction. INDICATION: Right-sided pain. FINDINGS: There is massive heterogeneous nodular prostatomegaly, increased from the comparison study of 2016. In axial dimensions, the prostate measures 10 cm transverse x 12 cm AP and approximately 9.5 cm cephalocaudal. Diverticulation at the urinary bladder fundal portion is a chronic finding, however severe nodular new circumferential bladder wall thickening has occurred with the bladder wall averaging thickness of 2.5 cm. There is edema of the pelvic perivesical fat as well as some perivesical pelvic lymphadenopathy is a new finding. Largest node in the distal right external iliac chain is 2.2 cm, node adjacent to the 2 o'clock position of the lower thickened urinary bladder measured 1.8 cm, and 1.5 cm left-sided perivesical nodes present. While the findings may all reflect severe cystitis and reactive regional lymphadenopathy, neoplasm of prostatic and/or bladder origin could not be excluded. The urinary bladder is catheterized, likely accounting for its intraluminal gas. There is posterior angulation of fracture at the subcapital femoral neck. No dislocation. No other acute bony abnormality. There are renal cortical cysts bilaterally without hydroureteronephrosis. No solid or enhancing renal mass. The adrenals are negative. There are few gallstones present with no evidence for acute cholecystitis. There are cysts in the left and right hepatic lobes. There is a small hiatal hernia. The spleen is negative. Pancreas is unremarkable. The atherosclerotic aorta shows some mild ectasia at its infrarenal segment without rupture dilating to maximal diameter of 2.7 cm. I cannot identify the appendix but there is no pericecal inflammation or evidence for acute appendicitis. There were no findings of diverticulitis. IMPRESSION: 1. Progressive massive prostatomegaly. New severe nodular circumferential irregular thickening of the urinary bladder wall, perivesical edema, and pelvic lymphadenopathy. The findings could reflect reactive vicky disease and severe cystitis, however neoplasm of prostatic and/or bladder origin could not be excluded with regional vicky metastases. 2. Posterior angulation of displaced subcapital femoral neck fracture. There are lucencies along the fracture margin. A pathological fracture could not be absolutely excluded, correlate clinically. No other acute or suspect bony findings. 3. Cystic kidneys without hydronephrosis. 4. Cholelithiasis without evidence for acute cholecystitis. Benign hepatic cysts noted, chronic. 5. 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 Dictated by: Dictated on workstation # [id number] Dict: 09/19/19 1148 Trans: 09/19/19 1656 [id number] [id number] Interpreted by: MELODIE AGUILAR Electronically signed by: MELODIE AGUILAR 09/19/19 [id number] Discharge Condition at discharge STABLE Instructions to patient/family Please see electronic discharge instructions given to patient. Discharge Medications Reviewed and agree with Discharge Medication list on patient's Discharge Instruction sheet Clinical Quality Measures DVT/VTE Risk/Contraindication: Risk Factor Score Per Nursin RFS Level Per Nursing on Admit: 4+=Very High LORAINE MCCONNELL MD Sep 22, 2019 10:26
[2019-09-22 11:00] VITALS: BP 138/62
--- NOTE | 2019-09-22 11:00 | NUR ---
TRANSFERRED TO REHAB, REPORT GIVEN TO ANGELA SHELLEY, DRESSING CHANGED TO LEFT HIP DRESSING, SUTURES INTACT, NO REDNESS OR DRAINAGE, FELIPE HOSE APPLIED, TURNED TO SIDE, COCCXY AREA RED, ZINC OINTMENT APPLIED, INCONT URINE, ON AIR BED, LOWER LEGS EDEMATOUS, O2 ON PER NC AT 3 LITERS, ICE PACK TO INCISION, DENIES PAIN AT THIS TIME, PAIN PILL OFFERED BUT PATIENT DECLINED, AT BEDSIDE, INSTRUCTED TRANSFER TO REHAB, VERBALIZED UNDERSTANDING.
== END 2019-09-22 11:00 | DRG 470 ==
LOC: EDUNIT# 05:29 → ER 05:30 → 4TH 07:32
PROVIDERS: ADMIT Family Medicine; ATTEND Family Medicine
PROC: 0SRS0J9 Replacement of Left Hip Joint, Femoral Surface with Synthetic Substitute, Cemented, Open Approach (ICD-10-PCS; principal; 2019-09-19 12:01)
PROC: 0TJB8ZZ Inspection of Bladder, Via Natural or Artificial Opening Endoscopic (ICD-10-PCS; 2019-09-21)
DX: S72.012A Unspecified intracapsular fracture of left femur, initial encounter for closed fracture (principal); N39.0 Urinary tract infection, site not specified; I13.0 Hypertensive heart and chronic kidney disease with heart failure and stage 1 through stage 4 chronic kidney disease, or unspecified chronic kidney disease; N18.4 Chronic kidney disease, stage 4 (severe); I69.354 Hemiplegia and hemiparesis following cerebral infarction affecting left non-dominant side; I69.398 Other sequelae of cerebral infarction; N40.1 Benign prostatic hyperplasia with lower urinary tract symptoms; R33.8 Other retention of urine; R31.0 Gross hematuria; E78.00 Pure hypercholesterolemia, unspecified; I50.9 Heart failure, unspecified; H54.60 Unqualified visual loss, one eye, unspecified; M19.91 Primary osteoarthritis, unspecified site; R35.0 Frequency of micturition; R32 Unspecified urinary incontinence; J30.2 Other seasonal allergic rhinitis; R93.41 Abnormal radiologic findings on diagnostic imaging of renal pelvis, ureter, or bladder; M54.5 Low back pain; W19.XXXA Unspecified fall, initial encounter; Z97.4 Presence of external hearing-aid; Y92.002 Bathroom of unspecified non-institutional (private) residence as the place of occurrence of the external cause
CPT/HCPCS: 36415; 71045; 73501; 74177; 80048; 80053; 81000; 84153; 85025; 85027; 85610; 85730; 87081; 87088; 87635; 94664

== ENCOUNTER → 2019-10-23 | Outpatient (CLI) | payer MEDICARE ==
[~2019-10-23] MED LIST changes: +AMLO10TA7 PO; +ATOR40TA70 PO; +HYDR-3812 PO; +HYDR-3922 PO; +LACT1CAP7 PO; +MICO90PO TOP; +POTA20TA8 PO; +SENN-20 PO
== END ==
LOC: ORTHO 09:32
PROVIDERS: ATTEND Orthopaedic Surgery
DX: I10 Essential (primary) hypertension (principal); Z20.828 Contact with and (suspected) exposure to other viral communicable diseases; Z96.642 Presence of left artificial hip joint

== ENCOUNTER 2019-10-31 18:41 | Emergency (ER) | payer MEDICARE ==
[~2019-10-31] VITALS: Ht 185.5 cm; Wt 88.0 kg
[~2019-10-31 18:41] MED LIST changes: +ACHD5005 PO; -HYDR-3812 PO
[2019-10-31 19:03] VITALS: BP 148/70
--- NOTE | 2019-10-31 19:10 | NUR ---
catheter advanced/flushed et. began draining.
--- NOTE | 2019-10-31 19:15 | NUR ---
400ml emptied from leg bag.
--- NOTE | 2019-10-31 19:20 | ED GU-Female ---
General Chief Complaint: - Urinary Stated Complaint: UNABLE TO URINATE Nursing Triage Note: urinary retention after catheter changed today. Nursing Sepsis Screen: No Definite Risk Source: patient Exam Limitations: no limitations History of Present Illness Date Seen by Provider: Oct 31, 2019 Time Seen by Provider: 19:18 Initial Comments Patient had a routine Mendoza catheter exchange at Dr. Diehl's office earlier tod jamilah. Since then he's had minimal output in the catheter and sensation of full bladder. Denies fevers or chills. Timing/Duration: just prior to arrival Severity/Quality: moderate Location: unknown Radiation: none Activities at Onset: none Prior Genitourinary Problems: none Allergies and Home Medications Allergies Coded Allergies: No Known Drug Allergies (Unverified , 09/24/11) Home Medications Amlodipine Besylate 10 Mg Tablet, 10 MG PO DAILY, (Reported) Atorvastatin Calcium 40 Mg Tablet, 40 MG PO HS, (Reported) Finasteride 5 Mg Tablet, 5 MG PO DAILY, (Reported) Hydralazine HCl 10 Mg Tablet, 20 MG PO TID, (Reported) TAKES 2 TABLETS TID Hydrocodone/Acetaminophen 1 Each Tablet, 1 TAB PO Q4H PRN for PAIN-MODERATE (5- 7) Prescribed by: SHAD VELASCO on 10/08/191844 Lactobacillus Acidophilus/Pect 1 Each Capsule, 2 EACH PO TIDWM Prescribed by: SHAD VELASCO on 10/08/191844 Miconazole Nitrate 90 Gm Powder, 0 GM TOP QID Prescribed by: SHAD VELASCO on 10/08/191844 Potassium Chloride 20 Meq Tab.er.prt, 40 MEQ PO BID, (Reported) TAKES 2 TABLETS BID Sennosides/Docusate Sodium 1 Each Tablet, 1 EA PO BID Prescribed by: SHAD VELASCO on 10/08/191844 Patient Home Medication List Home Medication List Reviewed: Yes Review of Systems Review of Systems Constitutional: see HPI EENTM: see HPI Respiratory: no symptoms reported Cardiovascular: no symptoms reported Genitourinary: see HPI Musculoskeletal: no symptoms reported Skin: no symptoms reported Psychiatric/Neurological: No Symptoms Reported Endocrine: No Symptoms Reported Past Ppoaeuz-Mqjruv-Cnjtzv Hx Patient Social History Alcohol Use: Denies Use Recreational Drug Use: No Smoking Status: Never a Smoker 2nd Hand Smoke Exposure: No Recent Foreign Travel: No Contact w/Someone Who Travel: No Recent Infectious Disease Expo: No Recent Hopitalizations: No Physical Abuse: No Sexual Abuse: No Mistreated: No Fear: No Immunizations Up To Date Date of Pneumonia Vaccine: Sep 24, 2011 Seasonal Allergies Seasonal Allergies: Yes Past Medical History Surgeries: Yes (LASER SURG ON PROSTATE) Orthopedic, Vasectomy Respiratory: Yes Pneumonia Currently Using CPAP: No Currently Using BIPAP: No Cardiac: Yes (Congestive heart failure) Chronic Edema/Swelling, High Cholesterol, Hypertension Neurological: Yes Stroke Reproductive Disorders: No Genitourinary: Yes (indwelling catheter) Benign Prostatic Hyperpl, Prostate Problems, Renal Failure Gastrointestinal: No Musculoskeletal: Yes Arthritis Endocrine: No HEENT: Yes Cataract Loss of Vision: Left Hearing Impairment: Bilateral Hearing Aide Cancer: No Psychosocial: No Integumentary: No (skin lesion) Blood Disorders: No Family Medical History Heart Disease, Hypertension Physical Exam Vital Signs Vital Signs - First Documented 10/31/19 19:03 Temp 36.8 Pulse 81 Resp 16 B/P (MAP) 148/70 (96) Pulse Ox 96 O2 Delivery Room Air Capillary Refill : Less Than 3 Seconds Height, Weight, BMI Height: 6'1.00" Weight: 212lbs. 0.0oz. 96.730616uq; 25.00 BMI Method:Stated General Appearance: WD/WN, no apparent distress Respiratory: no respiratory distress, no accessory muscle use Genital/Rectal: other (Mendoza catheter balloon was deflated, Mendoza catheter was inserted further until it was into the bladder, balloon was reinflated. Was then able to empty about 600 cc of urine out.) Extremities: normal range of motion, non-tender Neurologic/Psychiatric: alert, normal mood/affect, oriented x 3 Skin: normal color, warm/dry Progress/Results/Core Measures Suspected Sepsis Recent Fever Within 48 Hours: No Infection Criteria Present: None New/Unexplained Altered Menta: No Sepsis Screen: No Definite Risk SIRS Temperature: Pulse: 81 Respiratory Rate: 16 Blood Pressure 148 /70 Mean: 96 Results/Orders Vital Signs/I&O 10/31/19 19:03 Temp 36.8 Pulse 81 Resp 16 B/P (MAP) 148/70 (96) Pulse Ox 96 O2 Delivery Room Air Capillary Refill : Less Than 3 Seconds Blood Pressure Mean: 96 Departure Impression Primary Impression: Mendoza catheter problem Qualified Codes: T83.9XXA - Unspecified complication of genitourinary prosthetic device, implant and graft, initial encounter Disposition: 01 HOME, SELF-CARE Condition: Stable Departure-Patient Inst. Decision time for Depature: 19:20 Referrals: LORAINE MCCONNELL MD (PCP) Primary Care Physician Patient Instructions: Mendoza Catheter, Male Add. Discharge Instructions: Return to ER for any concerns. All discharge instructions reviewed with patient and/or family. Voiced understanding. MEGAN MEAD COLLABORATING SUPERVISING PHYSICIAN Oct 31, 2019 19:20
[2019-10-31 19:23] LABS: BILIRUBIN,URINE NEGATIVE (NEGATIVE); CLARITY,URINE CLEAR; COLOR,URINE YELLOW; GLUCOSE, URINE (UA) NEGATIVE (NEGATIVE); KETONES,URINE NEGATIVE (NEGATIVE); LEUKOCYTE ESTERASE ,URINE 3+ (NEGATIVE); NITRITE,URINE POSITIVE (NEGATIVE); PH,URINE 6.5 (5-9); PROTEIN,URINE TRACE (NEGATIVE)
[2019-10-31 19:55] LABS: BACTERIA,URINE MODERATE /HPF; WBC,URINE 50-100 /HPF
== END 2019-10-31 19:30 | disposition home or self-care (01) ==
LOC: EDUNIT# 18:41 → ER 18:43
DX: T83.091A Other mechanical complication of indwelling urethral catheter, initial encounter (principal); E78.00 Pure hypercholesterolemia, unspecified; N19 Unspecified kidney failure; I11.0 Hypertensive heart disease with heart failure; I50.9 Heart failure, unspecified; Z82.49 Family history of ischemic heart disease and other diseases of the circulatory system
CPT/HCPCS: 81000; 87088; 99282